=== PATIENT | female | born 1935 | race African-American/Black ===

== ENCOUNTER 2016-11-20 09:33 | Inpatient (IN) | payer MEDICARE, MEDICAID ==
[~2016-11-20] VITALS: Ht 165.1 cm; Wt 49.0 kg
[2016-11-20 10:09] LABS: BASOPHILS % 0.5 % (0.0-2.0); EOSINOPHILS % 1.4 % (0.0-5.0); HEMATOCRIT. 36.5 % (36.0-48.0); LYMPHOCYTES % 20.4 % (20.0-50.0); MEAN CORPUSCULAR HEMOGLOBIN 28.2 pg (28.0-32.0); MEAN CORPUSCULAR HGB CONC 32.7 g/dL (31.0-37.0); MEAN CORPUSCULAR VOLUME 86.1 fL (81.0-99.0); MEAN PLATELET VOLUME 7.1 fl (7.4-10.4); MONOCYTES % 5.3 % (2.0-8.0); NEUTROPHILS % 72.4 % (40.0-76.0); PLATELET 250 x1000/uL (130-400); RED BLOOD CELL COUNT 4.25 mill/uL (4.2-5.4); RED CELL DISTRIBUTION WIDTH 17.9 % (11.6-14.6)
[2016-11-20 10:14] LABS: PARTIAL THROMBOPLASTIN TIME 30.2 sec (24.0-34.0); PROTHROMBIN TIME 10.2 sec
[2016-11-20 10:20] LABS: ALANINE AMINOTRANSFERASE 11 IU/L (13-61); ALBUMIN 2.8 g/dL (3.4-5.0); ANION GAP 11; CALCIUM 8.5 mg/dL (8.5-10.1); CARBON DIOXIDE 29 mEq/L (21-32); CHLORIDE 105 mEq/L (98-107); HDL CHOLESTEROL 52 mg/dL (40-59); INDEX HEMOLYSI 1 (1-3); INDEX ICTERIC 1 (1-4); INDEX LIPEMIC 1 (1-3); LDL CHOLESTEROL 72 mg/dL (5-100); MAGNESIUM 2.1 mg/dL (1.8-2.4); TRIGLYCERIDE 92 mg/dL (0-150); UREA NITROGEN BLOOD 14 mg/dL (7-21); eGFR 58 mL/min (>60)
[2016-11-20 11:12] LABS: HEPATITIS B SURFACE ANTIGEN NEGATIVE
[2016-11-20 11:39] LABS: CLARITY URINE CLOUDY (CLEAR); COLOR URINE YELLOW (YELLOW); GLUCOSE URINE NEGATIVE (NEGATIVE); KETONES URINE NEGATIVE (NEGATIVE); LEUKOCYTE ESTERASE URINE NEGATIVE (NEGATIVE); NITRITE URINE NEGATIVE (NEGATIVE); OCCULT BLOOD URINE NEGATIVE (NEGATIVE); PH URINE 6.5 (4.5-8.0); PROTEIN URINE TRACE (NEGATIVE); SPECIFIC GRAVITY URINE 1.014 (1.005-1.030)
[2016-11-20 11:40] LABS: HEPATITIS C VIR.AB 0.18 INDEXVAL (0.00-0.80)
[2016-11-20 11:41] LABS: HEPATITIS B CORE AB IGM NEGATIVE
[2016-11-20 11:42] LABS: HEPATITIS A AB IGM NEGATIVE (NEGATIVE)
[2016-11-20 12:06] LABS: RBC URINE 0-2 /hpf (0-2); SQUAMOUS EPITHELIAL CELL URINE RARE /lpf (RARE/1+); WBC URINE 0-2 /hpf (0-2)
[2016-11-20 12:07] LABS: *AMPHETAMINES SCREEN URINE NEGATIVE (NEGATIVE); *BARBITURATES SCREEN URINE NEGATIVE (NEGATIVE); *BENZODIAZEPINES SCREEN URINE NEGATIVE (NEGATIVE); *COCAINE SCREEN URINE NEGATIVE (NEGATIVE); AMORPHOUS SEDIMENT URINE 2+ /lpf; BACTERIA URINE TRACE; CANNABINOID URINE SCREEN NEGATIVE (NEGATIVE); ECSTASY MDMA SCREEN URINE NEGATIVE (NEGATIVE); METHADONE URINE SCREEN NEGATIVE (NEGATIVE); MUCUS URINE TRACE /lpf (< = 2+); OPIATES URINE SCREEN NEGATIVE (NEGATIVE); PHENCYCLIDINE URINE SCREEN NEGATIVE (NEGATIVE)
[2016-11-20] MEDS ORDERED: LEVOFLOXACIN 500MG PREMIX 100 ML IV ONE (13:15)
[2016-11-20] MEDS ORDERED: METRONIDAZOLE 500 MG PREMIX 100 ML IV ONE (13:15)
[2016-11-20] MEDS ORDERED: METRONIDAZOLE 500 MG PREMIX 100 ML IV SCH (14:30)
[2016-11-20] MEDS ORDERED: IPRATROPIUM/ALBUTEROL 0.5-3(2.5)MG/3ML NEB INH PRN (14:30)
[2016-11-20] MEDS ORDERED: LEVOFLOXACIN 500MG PREMIX 100 ML IV SCH (14:45)
[2016-11-20] MEDS ORDERED: ONDANSETRON HCL 4MG/2ML VIAL IV PRN (15:45)
[2016-11-20 16:30] VITALS: BP 200/106
[2016-11-20] MEDS ORDERED: LEVOFLOXACIN 250MG PREMIX 50 ML IV SCH (16:44)
[2016-11-20] MEDS ORDERED: SORBITOL 70% SOLN 30ML PO NR (18:00)
[2016-11-20] MEDS: CLONIDINE 0.1MG TABLET PO PRN (18:40)
[2016-11-20 20:00] VITALS: BP_SYST 122; BP_SYST 209; BP_DIAS 101; BP_DIAS 87
[2016-11-20] MEDS ORDERED: SULFAMETHOXAZOLE/TRIMETHOPRIM 800/160MG TABLET PO SCH (21:00)
[2016-11-20] MEDS ORDERED: SORBITOL 70% SOLN 30ML PO PRN (22:00)
[2016-11-20] MEDS: HYDROCODONE/ACETAMINOPHEN 5/325MG TABLET PO PRN (22:36)
[2016-11-20] MEDS: METRONIDAZOLE 500 MG PREMIX 100 ML IV SCH (22:55)
[2016-11-20] MEDS ORDERED: DEXTROSE 50% WATER 50ML SYRINGE IV PRN (23:30)
[2016-11-21] VITALS: BP 110/66
[2016-11-21] MEDS: METRONIDAZOLE 500 MG PREMIX 100 ML IV SCH ×3 (04:56→23:57)
[2016-11-21] MEDS: INSULIN LISPRO 100 UNITS/ML SUBCUT SCH ×4 (06:45→21:00)
[2016-11-21] MEDS: BLOOD SUGAR DIAGNOSTIC STRIP TEST SCH ×4 (06:45→21:10)
[2016-11-21 08:00] VITALS: BP 130/79
[2016-11-21] MEDS ORDERED: LACTULOSE 20G/30ML UDC PO SCH (11:00)
[2016-11-21] MEDS ORDERED: NICOTINE 14 MG (11:30)
[2016-11-21] MEDS ORDERED: ROSU20TA PO (11:30)
[2016-11-21] MEDS ORDERED: mag (11:30)
[2016-11-21] MEDS ORDERED: POLY119P2 PO (11:30)
[2016-11-21] MEDS ORDERED: CLOP75TA33 PO (11:30)
[2016-11-21] MEDS ORDERED: FOLI-43 PO (11:30)
[2016-11-21] MEDS ORDERED: OMEP20CA10 PO (11:30)
[2016-11-21] MEDS ORDERED: ASPI-1035 PO (11:30)
[2016-11-21] MEDS ORDERED: METO50TA5 PO (11:30)
[2016-11-21] MEDS ORDERED: BUDE6HFA INH (11:30)
[2016-11-21] MEDS ORDERED: CYAN100053 IJ (11:30)
[2016-11-21] MEDS ORDERED: MONT10TA21 PO (11:30)
[2016-11-21] MEDS ORDERED: DOCU-150 PO (11:30)
[2016-11-21] MEDS ORDERED: OCD PO (11:30)
[2016-11-21] MEDS ORDERED: linaclotide (11:30)
[2016-11-21] MEDS ORDERED: PSYLLIUM (11:30)
[2016-11-21 11:53] VITALS: BP 148/74
[2016-11-21] MEDS: SENNOSIDES/DOCUSATE SOD 8.6/50MG TABLET PO SCH (12:06)
[2016-11-21] MEDS: HYDROCODONE/ACETAMINOPHEN 5/325MG TABLET PO PRN (12:07)
[2016-11-21] MEDS: LEVOFLOXACIN 250MG PREMIX 50 ML IV SCH (15:31)
[2016-11-21 15:43] LABS: HEMATOCRIT. 34.9 % (36.0-48.0); HEMOGLOBIN. 11.2 g/dL (12.0-16.0); MEAN CORPUSCULAR HEMOGLOBIN 27.9 pg (28.0-32.0); MEAN CORPUSCULAR HGB CONC 32.1 g/dL (31.0-37.0); MEAN CORPUSCULAR VOLUME 86.8 fL (81.0-99.0); MEAN PLATELET VOLUME 7.4 fl (7.4-10.4); PLATELET 230 x1000/uL (130-400); RED BLOOD CELL COUNT 4.02 mill/uL (4.2-5.4); WHITE BLOOD COUNT 15.8 x1000/uL (4.5-11.0)
[2016-11-21 15:47] LABS: DIFFERENTIAL COMMENT 1
[2016-11-21 15:58] LABS: ALANINE AMINOTRANSFERASE 7 IU/L (13-61); ALBUMIN 2.5 g/dL (3.4-5.0); AMYLASE 43 IU/L (25-115); ANION GAP 12; CALCIUM 8.6 mg/dL (8.5-10.1); CARBON DIOXIDE 27 mEq/L (21-32); CHLORIDE 106 mEq/L (98-107); INDEX HEMOLYSI 1 (1-3); INDEX ICTERIC 1 (1-4); INDEX LIPEMIC 1 (1-3); LIPASE 91 IU/L (73-393); UREA NITROGEN BLOOD 15 mg/dL (7-21); eGFR 58 mL/min (>60)
[2016-11-21 16:00] VITALS: BP 151/95
[2016-11-21 19:07] LABS: ATYPICAL LYMPHOCYTES 2; PLATELET ESTIMATE NORMAL
[2016-11-21 19:08] LABS: ANISOCYTOSIS 1+
[2016-11-21 20:00] VITALS: BP 164/95
[2016-11-21] MEDS: CLONIDINE 0.1MG TABLET PO PRN (20:49)
[2016-11-21] MEDS: MORPHINE SULFATE 2 MG/ML CPJ (NOT FOR IM USE) IV PRN (20:49)
[2016-11-21] MEDS: VANCOMYCIN 1 G PREMIX 200 ML IV SCH (20:49)
[2016-11-22] VITALS: BP 132/66
[2016-11-22] MEDS: MORPHINE SULFATE 2 MG/ML CPJ (NOT FOR IM USE) IV PRN (01:17)
[2016-11-22] MEDS: BLOOD SUGAR DIAGNOSTIC STRIP TEST SCH ×4 (07:12→20:23)
[2016-11-22] MEDS: METRONIDAZOLE 500 MG PREMIX 100 ML IV SCH ×3 (07:13→21:33)
[2016-11-22] MEDS: INSULIN LISPRO 100 UNITS/ML SUBCUT SCH ×4 (07:15→20:23)
[2016-11-22 08:00] VITALS: BP 162/87
[2016-11-22] MEDS: SENNOSIDES/DOCUSATE SOD 8.6/50MG TABLET PO SCH (08:55)
[2016-11-22 09:07] LABS: BASOPHILS % 0.2 % (0.0-2.0); EOSINOPHILS % 0.2 % (0.0-5.0); HEMATOCRIT. 33.9 % (36.0-48.0); HEMOGLOBIN. 10.9 g/dL (12.0-16.0); LYMPHOCYTES % 11.7 % (20.0-50.0); MEAN CORPUSCULAR HEMOGLOBIN 27.8 pg (28.0-32.0); MEAN CORPUSCULAR HGB CONC 32.1 g/dL (31.0-37.0); MEAN CORPUSCULAR VOLUME 86.6 fL (81.0-99.0); MEAN PLATELET VOLUME 7.5 fl (7.4-10.4); MONOCYTES % 6.8 % (2.0-8.0); NEUTROPHILS % 81.1 % (40.0-76.0); PLATELET 222 x1000/uL (130-400); RED BLOOD CELL COUNT 3.91 mill/uL (4.2-5.4); RED CELL DISTRIBUTION WIDTH 17.8 % (11.6-14.6); WHITE BLOOD COUNT 14.8 x1000/uL (4.5-11.0)
[2016-11-22 09:17] LABS: ALANINE AMINOTRANSFERASE 8 IU/L (13-61); ALBUMIN 2.4 g/dL (3.4-5.0); ANION GAP 12; CALCIUM 8.6 mg/dL (8.5-10.1); CARBON DIOXIDE 26 mEq/L (21-32); CHLORIDE 107 mEq/L (98-107); INDEX HEMOLYSI 1 (1-3); INDEX ICTERIC 1 (1-4); INDEX LIPEMIC 1 (1-3); UREA NITROGEN BLOOD 14 mg/dL (7-21); eGFR 58 mL/min (>60)
[2016-11-22 12:00] VITALS: BP 156/82
[2016-11-22] MEDS: HYDROCODONE/ACETAMINOPHEN 5/325MG TABLET PO PRN (12:11)
[2016-11-22] MEDS: LEVOFLOXACIN 250MG PREMIX 50 ML IV SCH (14:20)
[2016-11-22 16:00] VITALS: BP 150/90
[2016-11-22 20:00] VITALS: BP 167/96
[2016-11-22] MEDS: CLONIDINE 0.1MG TABLET PO PRN (20:23)
[2016-11-22] MEDS: VANCOMYCIN 1 G PREMIX 200 ML IV SCH (20:23)
[2016-11-23] VITALS: BP 117/77
[2016-11-23 04:00] VITALS: BP 137/80
[2016-11-23] MEDS: METRONIDAZOLE 500 MG PREMIX 100 ML IV SCH ×2 (05:41→13:56)
[2016-11-23] MEDS: BLOOD SUGAR DIAGNOSTIC STRIP TEST SCH ×2 (05:55→11:48)
[2016-11-23 06:08] LABS: CALCIUM 8.7 mg/dL (8.5-10.1)
[2016-11-23] MEDS: INSULIN LISPRO 100 UNITS/ML SUBCUT SCH ×3 (06:18→11:48)
[2016-11-23 08:00] VITALS: BP 128/83
[2016-11-23] MEDS ORDERED: NA PHOS,M-B/NA PHOS,DI-BA ENEMA 118ML PR NR (09:00)
[2016-11-23] MEDS: SENNOSIDES/DOCUSATE SOD 8.6/50MG TABLET PO SCH (09:50)
[2016-11-23] MEDS: LEVOFLOXACIN 250MG PREMIX 50 ML IV SCH (14:57)
[2016-11-23 15:06] VITALS: BP 146/82
[2016-11-23] MEDS ORDERED: METRONIDAZOLE 500MG TABLET PO SCH (22:00)
[2016-11-24] MEDS ORDERED: LEVOFLOXACIN 250MG TABLET PO SCH (11:00)
== END 2016-11-23 15:50 | disposition home or self-care (01) | DRG 391 ==
LOC: ER 09:41 → 6EST 13:08 → 5WST 18:50
PROVIDERS: ADMIT Internal Medicine Critical Care Medicine; ATTEND Internal Medicine Critical Care Medicine
DX: K57.32 Diverticulitis of large intestine without perforation or abscess without bleeding (principal); E43 Unspecified severe protein-calorie malnutrition; R65.10 Systemic inflammatory response syndrome (SIRS) of non-infectious origin without acute organ dysfunction; Z68.1 Body mass index [BMI] 19.9 or less, adult; I10 Essential (primary) hypertension; I71.4 Abdominal aortic aneurysm, without rupture; J44.9 Chronic obstructive pulmonary disease, unspecified; E11.65 Type 2 diabetes mellitus with hyperglycemia; F17.210 Nicotine dependence, cigarettes, uncomplicated; K59.00 Constipation, unspecified; I25.10 Atherosclerotic heart disease of native coronary artery without angina pectoris; E11.51 Type 2 diabetes mellitus with diabetic peripheral angiopathy without gangrene; E11.21 Type 2 diabetes mellitus with diabetic nephropathy; Z95.5 Presence of coronary angioplasty implant and graft; I25.2 Old myocardial infarction; Z89.511 Acquired absence of right leg below knee
CPT/HCPCS: 36415; 71010; 74176; 80048; 80053; 80061; 80305; 81001; 82150; 82962; 83036; 83605; 83690; 83735; 85025; 85610; 85651; 85730; 86705; 86709; 86803; 87040; 87340; 93005; 93970; 96365; 96366; 96368; 99285; J1815; J1956; J2270; J2405; J3370; J3490; J7030; J7040; J7050

== ENCOUNTER 2017-07-29 11:48 | Emergency (ER) | payer MEDICARE, MEDICAID ==
[~2017-07-29] VITALS: Ht 160 cm; Wt 65.0 kg
[~2017-07-29 11:48] MED LIST: ASPI-1159 PO; BUDE6HFA INH; CLOP75TA33 PO; CYAN100053 IJ; DOCU-150 PO; FOLI-43 PO; METO-539 PO; MONT10TA21 PO; OCD PO; OMEP20CA10 PO; POLY119P2 PO; ROSU20TA PO
[2017-07-29 17:30] VITALS: BP 208/111
[2017-07-29] MEDS ORDERED: CLONIDINE 0.1MG TABLET PO ONE (18:45)
== END 2017-07-29 19:10 | disposition home or self-care (01) ==
LOC: ER 11:58
DX: R60.0 Localized edema (principal); K59.00 Constipation, unspecified; J44.9 Chronic obstructive pulmonary disease, unspecified; E11.9 Type 2 diabetes mellitus without complications; I10 Essential (primary) hypertension; F17.290 Nicotine dependence, other tobacco product, uncomplicated; Z89.511 Acquired absence of right leg below knee; Z79.82 Long term (current) use of aspirin; Z79.01 Long term (current) use of anticoagulants
CPT/HCPCS: 93971; 99284; 99406

== ENCOUNTER 2018-07-19 10:50 | Emergency (ER) | payer MEDICARE, MEDICAID ==
[~2018-07-19] VITALS: Ht 165.1 cm; Wt 78.0 kg
[~2018-07-19 10:50] MED LIST changes: +ATOR20TA65 PO; +GABA-533 PO; +HYDROCODONE; +SULF20OR7 PO
[2018-07-19] MEDS ORDERED: KETOROLAC 30MG/ML VIAL IM ONE (12:00)
[2018-07-19 12:25] VITALS: BP 117/57
[2018-07-19] MEDS ORDERED: BACITRACIN 15GM TUBE TOP ONE (13:30)
== END 2018-07-19 14:19 | disposition home or self-care (01) ==
LOC: ER 10:50
DX: M25.552 Pain in left hip (principal); I50.9 Heart failure, unspecified; J44.9 Chronic obstructive pulmonary disease, unspecified; E78.00 Pure hypercholesterolemia, unspecified; T21.25XA Burn of second degree of buttock, initial encounter; T31.0 Burns involving less than 10% of body surface; X11.8XXA Contact with other hot tap-water, initial encounter; Y93.89 Activity, other specified; Y92.89 Other specified places as the place of occurrence of the external cause; Y99.8 Other external cause status; Z79.82 Long term (current) use of aspirin; Z88.5 Allergy status to narcotic agent; Z79.899 Other long term (current) drug therapy
CPT/HCPCS: 16020; 73502; 96372; 99284; J1885

== ENCOUNTER 2018-10-24 10:50 | Inpatient (IN) | payer MEDICARE, MEDICAID ==
[~2018-10-24] VITALS: Ht 162.6 cm; Wt 65.5 kg
[2018-10-24] MEDS ORDERED: FUROSEMIDE 40MG/4ML VIAL IV ONE (11:30)
[2018-10-24 11:40] LABS: HEMATOCRIT. 43.7 % (36.0-48.0); MEAN CORPUSCULAR HEMOGLOBIN 29.9 pg (28.0-32.0); MEAN CORPUSCULAR VOLUME 93.3 fL (81.0-99.0); MEAN PLATELET VOLUME 8.5 fl (7.4-10.4); PLATELET 231 x1000/uL (130-400); RED BLOOD CELL COUNT 4.69 mill/uL (4.2-5.4); RED CELL DISTRIBUTION WIDTH 20.7 % (11.6-14.6)
[2018-10-24 11:47] LABS: CHLORIDE 101 mEq/L (98-107)
[2018-10-24] MEDS ORDERED: CEFTRIAXONE 1 G PREMIX 50 ML IV ONE (12:30)
[2018-10-24] MEDS ORDERED: VANCOMYCIN 1 G PREMIX 200 ML IV ONE (12:30)
[2018-10-24 12:53] LABS: PLATELET ESTIMATE NORMAL
[2018-10-24] MEDS ORDERED: ONDANSETRON HCL 4MG/2ML INJ IV STA (13:44)
[2018-10-24] MEDS ORDERED: MORPHINE SULFATE 4 MG/ML CPJ (NOT FOR IM USE) IV STA (13:44)
[2018-10-24 21:41] VITALS: BP 147/63
[2018-10-24 21:50] VITALS: BP 147/63
[2018-10-24] MEDS: HYDROMORPHONE HCL/PF 2MG/ML CPJ IV PRN (23:07)
[2018-10-25] MEDS ORDERED: ACETAMINOPHEN 325MG TABLET PO PRN
[2018-10-25] MEDS ORDERED: ONDANSETRON HCL 4MG/2ML INJ IV PRN
[2018-10-25] MEDS ORDERED: DOCUSATE SODIUM 100MG CAPSULE PO PRN
[2018-10-25] MEDS ORDERED: PIPERACILLIN/TAZ 3.375G PREMIX 50 ML IV SCH
[2018-10-25 00:05] VITALS: BP 144/69
[2018-10-25] MEDS: ATORVASTATIN CALCIUM 20MG TABLET PO SCH ×2 (00:41→21:20)
[2018-10-25] MEDS: SODIUM CHLORIDE 0.9% 1,000 ML IV SCH ×2 (00:42→13:20)
[2018-10-25] MEDS: IPRATROPIUM/ALBUTEROL 0.5-3(2.5)MG/3ML NEB HHN SCH ×5 (00:43→20:40)
[2018-10-25] MEDS: PIPERACILLIN/TAZ 2.25G PREMIX 50 ML IV SCH ×3 (02:07→18:06)
[2018-10-25 04:00] VITALS: BP 127/58
[2018-10-25] MEDS: GABAPENTIN 400MG CAPSULE PO SCH ×3 (06:19→21:36)
[2018-10-25 06:22] LABS: HEMATOCRIT. 36.2 % (36.0-48.0); HEMOGLOBIN. 11.7 g/dL (12.0-16.0); MEAN CORPUSCULAR HEMOGLOBIN 30.1 pg (28.0-32.0); MEAN CORPUSCULAR VOLUME 93.3 fL (81.0-99.0); MEAN PLATELET VOLUME 8.5 fl (7.4-10.4); PLATELET 238 x1000/uL (130-400); RED BLOOD CELL COUNT 3.88 mill/uL (4.2-5.4); RED CELL DISTRIBUTION WIDTH 20.1 % (11.6-14.6)
[2018-10-25] MEDS: INSULIN LISPRO 100 UNITS/ML SUBCUT SCH ×4 (07:19→21:00)
[2018-10-25] MEDS: BLOOD SUGAR DIAGNOSTIC STRIP TEST SCH ×4 (07:19→21:30)
[2018-10-25] MEDS: OMEPRAZOLE 20MG CAPSULE EXTENDED RELEASE PO SCH (07:56)
[2018-10-25 08:00] VITALS: BP 92/68
[2018-10-25] MEDS ORDERED: ENOXAPARIN 40MG/0.4ML SYR SUBCUT SCH (09:00)
[2018-10-25] MEDS: METOPROLOL TARTRATE 50MG TABLET PO SCH ×2 (09:00→21:29)
[2018-10-25] MEDS: ASPIRIN 81MG TABLET PO SCH (09:41)
[2018-10-25] MEDS: CLOPIDOGREL 75MG TABLET PO SCH (09:41)
[2018-10-25] MEDS: ENOXAPARIN 30MG/0.3ML SYR SUBCUT SCH (09:42)
[2018-10-25 10:21] LABS: PLATELET ESTIMATE NORMAL
[2018-10-25 12:00] VITALS: BP 161/66
[2018-10-25] MEDS: HYDROMORPHONE HCL/PF 2MG/ML CPJ IV PRN (14:13)
[2018-10-25] MEDS: VANCOMYCIN 750 MG PREMIX 150 ML IV SCH (14:13)
[2018-10-25 15:24] LABS: CHLORIDE 103 mEq/L (98-107)
[2018-10-25 16:00] VITALS: BP 152/59
[2018-10-25 20:00] VITALS: BP 165/85
[2018-10-25] MEDS: DEXTROSE 50% WATER 50ML SYRINGE IV PRN (21:15)
[2018-10-26] VITALS: BP 124/56
[2018-10-26] MEDS: IPRATROPIUM/ALBUTEROL 0.5-3(2.5)MG/3ML NEB HHN SCH ×6 (00:37→21:18)
[2018-10-26] MEDS: PIPERACILLIN/TAZ 2.25G PREMIX 50 ML IV SCH ×3 (00:44→19:43)
[2018-10-26] MEDS: SODIUM CHLORIDE 0.9% 1,000 ML IV SCH ×2 (02:40→08:47)
[2018-10-26 04:00] VITALS: BP 127/60
[2018-10-26] MEDS: GABAPENTIN 400MG CAPSULE PO SCH ×3 (05:38→20:53)
[2018-10-26] MEDS: BLOOD SUGAR DIAGNOSTIC STRIP TEST SCH ×4 (07:55→20:45)
[2018-10-26 08:00] VITALS: BP 166/77
[2018-10-26] MEDS: INSULIN LISPRO 100 UNITS/ML SUBCUT SCH ×4 (08:10→20:45)
[2018-10-26] MEDS: METOPROLOL TARTRATE 50MG TABLET PO SCH ×2 (08:45→20:53)
[2018-10-26] MEDS: ENOXAPARIN 30MG/0.3ML SYR SUBCUT SCH (08:47)
[2018-10-26] MEDS: OMEPRAZOLE 20MG CAPSULE EXTENDED RELEASE PO SCH (08:47)
[2018-10-26] MEDS: CLOPIDOGREL 75MG TABLET PO SCH (08:47)
[2018-10-26] MEDS: ASPIRIN 81MG TABLET PO SCH (08:47)
[2018-10-26 12:00] VITALS: BP 93/66
[2018-10-26] MEDS: VANCOMYCIN 750 MG PREMIX 150 ML IV SCH (14:20)
[2018-10-26] MEDS: HYDROMORPHONE HCL/PF 2MG/ML CPJ IV PRN ×2 (14:30→20:57)
[2018-10-26 16:00] VITALS: BP 147/60
[2018-10-26 20:00] VITALS: BP 176/88
[2018-10-26] MEDS: ATORVASTATIN CALCIUM 20MG TABLET PO SCH (20:52)
[2018-10-27] VITALS: BP 102/60
[2018-10-27] MEDS: PIPERACILLIN/TAZ 2.25G PREMIX 50 ML IV SCH ×3 (01:04→17:56)
[2018-10-27] MEDS: IPRATROPIUM/ALBUTEROL 0.5-3(2.5)MG/3ML NEB HHN SCH ×6 (01:57→20:55)
[2018-10-27 04:00] VITALS: BP 130/64
[2018-10-27] MEDS: GABAPENTIN 400MG CAPSULE PO SCH ×3 (06:01→20:26)
[2018-10-27] MEDS: SODIUM CHLORIDE 0.9% 1,000 ML IV SCH (06:01)
[2018-10-27] MEDS: DEXTROSE 50% WATER 50ML SYRINGE IV PRN (06:16)
[2018-10-27] MEDS: BLOOD SUGAR DIAGNOSTIC STRIP TEST SCH ×4 (06:26→20:26)
[2018-10-27] MEDS: INSULIN LISPRO 100 UNITS/ML SUBCUT SCH ×4 (06:27→20:26)
[2018-10-27 08:00] VITALS: BP 167/87
[2018-10-27] MEDS: FAMOTIDINE 20MG TABLET PO SCH (10:13)
[2018-10-27] MEDS: HYDROMORPHONE HCL/PF 2MG/ML CPJ IV PRN (10:13)
[2018-10-27] MEDS: CLOPIDOGREL 75MG TABLET PO SCH (10:13)
[2018-10-27] MEDS: ENOXAPARIN 30MG/0.3ML SYR SUBCUT SCH (10:14)
[2018-10-27] MEDS: ASPIRIN 81MG TABLET PO SCH (10:14)
[2018-10-27] MEDS: METOPROLOL TARTRATE 50MG TABLET PO SCH ×2 (10:14→20:26)
[2018-10-27 12:00] VITALS: BP 136/70
[2018-10-27 12:43] LABS: HEMATOCRIT. 34.1 % (36.0-48.0); MEAN CORPUSCULAR VOLUME 93.5 fL (81.0-99.0); MEAN PLATELET VOLUME 8.3 fl (7.4-10.4); PLATELET 264 x1000/uL (130-400); RED BLOOD CELL COUNT 3.65 mill/uL (4.2-5.4); RED CELL DISTRIBUTION WIDTH 19.9 % (11.6-14.6)
[2018-10-27 12:54] LABS: CHLORIDE 107 mEq/L (98-107)
[2018-10-27] MEDS: VANCOMYCIN 750 MG PREMIX 150 ML IV SCH (14:58)
[2018-10-27 16:00] VITALS: BP 139/73
[2018-10-27 17:22] LABS: PLATELET ESTIMATE NORMAL
[2018-10-27 20:00] VITALS: BP 161/76
[2018-10-27] MEDS: ATORVASTATIN CALCIUM 20MG TABLET PO SCH (20:26)
[2018-10-28] VITALS: BP 160/81
[2018-10-28] MEDS: IPRATROPIUM/ALBUTEROL 0.5-3(2.5)MG/3ML NEB HHN SCH ×6 (00:15→20:30)
[2018-10-28] MEDS: PIPERACILLIN/TAZ 2.25G PREMIX 50 ML IV SCH ×2 (01:27→09:09)
[2018-10-28] MEDS: GABAPENTIN 400MG CAPSULE PO SCH ×3 (05:50→21:58)
[2018-10-28] MEDS: HYDROMORPHONE HCL/PF 2MG/ML CPJ IV PRN (05:54)
[2018-10-28] MEDS: CLONIDINE 0.1MG TABLET PO PRN (05:56)
[2018-10-28 06:00] VITALS: BP 168/81
[2018-10-28] MEDS: BLOOD SUGAR DIAGNOSTIC STRIP TEST SCH ×3 (06:40→21:57)
[2018-10-28 07:21] LABS: BASOPHILS % 0.5 % (0.0-2.0); EOSINOPHILS % 0.5 % (0.0-5.0); HEMATOCRIT. 34.8 % (36.0-48.0); HEMOGLOBIN. 11.4 g/dL (12.0-16.0); LYMPHOCYTES % 8.5 % (20.0-50.0); MEAN CORPUSCULAR HEMOGLOBIN 30.7 pg (28.0-32.0); MEAN CORPUSCULAR VOLUME 93.1 fL (81.0-99.0); MEAN PLATELET VOLUME 8.3 fl (7.4-10.4); MONOCYTES % 5.9 % (2.0-8.0); NEUTROPHILS % 84.6 % (40.0-76.0); PLATELET 284 x1000/uL (130-400); RED BLOOD CELL COUNT 3.74 mill/uL (4.2-5.4); RED CELL DISTRIBUTION WIDTH 19.9 % (11.6-14.6)
[2018-10-28 08:00] VITALS: BP 164/75
[2018-10-28] MEDS: INSULIN LISPRO 100 UNITS/ML SUBCUT SCH ×3 (08:10→21:00)
[2018-10-28] MEDS: VANCOMYCIN 750 MG PREMIX 150 ML IV SCH (08:27)
[2018-10-28] MEDS: FAMOTIDINE 20MG TABLET PO SCH (09:08)
[2018-10-28] MEDS: ASPIRIN 81MG TABLET PO SCH (09:08)
[2018-10-28] MEDS: METOPROLOL TARTRATE 50MG TABLET PO SCH ×2 (09:09→21:58)
[2018-10-28] MEDS: CLOPIDOGREL 75MG TABLET PO SCH (09:09)
[2018-10-28] MEDS: ENOXAPARIN 40MG/0.4ML SYR SUBCUT SCH (09:10)
[2018-10-28 13:01] VITALS: BP 133/63
[2018-10-28 17:02] VITALS: BP 137/70
[2018-10-28 20:00] VITALS: BP 181/83
[2018-10-28] MEDS: ATORVASTATIN CALCIUM 20MG TABLET PO SCH (21:58)
[2018-10-29] VITALS: BP 152/70
[2018-10-29] MEDS: IPRATROPIUM/ALBUTEROL 0.5-3(2.5)MG/3ML NEB HHN SCH ×6 (00:58→15:38)
[2018-10-29] MEDS: VANCOMYCIN 750 MG PREMIX 150 ML IV SCH (02:39)
[2018-10-29 04:00] VITALS: BP 174/84
[2018-10-29] MEDS: GABAPENTIN 400MG CAPSULE PO SCH ×2 (05:37→16:14)
[2018-10-29] MEDS: HYDROMORPHONE HCL/PF 2MG/ML CPJ IV PRN (05:37)
[2018-10-29] MEDS: CLONIDINE 0.1MG TABLET PO PRN (05:37)
[2018-10-29] MEDS: BLOOD SUGAR DIAGNOSTIC STRIP TEST SCH ×2 (06:23→08:00)
[2018-10-29] MEDS: INSULIN LISPRO 100 UNITS/ML SUBCUT SCH ×2 (07:20→13:10)
[2018-10-29] MEDS: ASPIRIN 81MG TABLET PO SCH (07:57)
[2018-10-29] MEDS: CLOPIDOGREL 75MG TABLET PO SCH (07:58)
[2018-10-29] MEDS: FAMOTIDINE 20MG TABLET PO SCH (07:58)
[2018-10-29] MEDS: ENOXAPARIN 40MG/0.4ML SYR SUBCUT SCH (07:59)
[2018-10-29] MEDS: METOPROLOL TARTRATE 50MG TABLET PO SCH (07:59)
[2018-10-29 08:00] VITALS: BP 150/64
[2018-10-29 09:06] LABS: ANTI-PROTEINASE 3 ABS < 3.5 U/mL (0.0-3.5)
[2018-10-29 10:09] LABS: ANTI-MYELOPEROXIDASE AB < 9.0 U/mL (0.0-9.0)
[2018-10-29] MEDS ORDERED: IOHEXOL-350 100 ML BOTTLE ONE (10:40)
[2018-10-29 12:00] VITALS: BP 138/79
[2018-10-29 13:06] LABS: ATYPICAL P-ANCA <1:20 titer (Neg:<1:20); CYTOPLASMIC C-ANCA <1:20 titer (Neg:<1:20); PERINUCLEAR P-ANCA <1:20 titer (Neg:<1:20)
[2018-10-29 16:18] VITALS: BP 130/79
== END 2018-10-29 18:09 | disposition home health service (06) | DRG 871 ==
LOC: ER 10:50 → 7WST 14:48 → EDBEDREQ 14:53 → ENRESERV 20:07
PROVIDERS: ADMIT Internal Medicine; ATTEND Internal Medicine
DX: A41.9 Sepsis, unspecified organism (principal); E43 Unspecified severe protein-calorie malnutrition; L03.116 Cellulitis of left lower limb; I13.0 Hypertensive heart and chronic kidney disease with heart failure and stage 1 through stage 4 chronic kidney disease, or unspecified chronic kidney disease; J44.9 Chronic obstructive pulmonary disease, unspecified; I50.9 Heart failure, unspecified; N18.9 Chronic kidney disease, unspecified; E11.51 Type 2 diabetes mellitus with diabetic peripheral angiopathy without gangrene; E11.22 Type 2 diabetes mellitus with diabetic chronic kidney disease; E78.5 Hyperlipidemia, unspecified; F17.200 Nicotine dependence, unspecified, uncomplicated; Z89.511 Acquired absence of right leg below knee; Z91.14 Patient's other noncompliance with medication regimen; Z91.19 Patient's noncompliance with other medical treatment and regimen; Z88.6 Allergy status to analgesic agent; Z79.82 Long term (current) use of aspirin; Z79.899 Other long term (current) drug therapy
CPT/HCPCS: 36415; 71045; 75635; 80048; 80202; 82962; 83520; 83880; 84145; 84484; 86140; 86256; 93005; 93923; 93971; 94640; 96365; 96366; 96375; 99285; A6261; J0696; J1170; J1650; J1940; J2270; J2405; J2543; J3370; J7030; J7620; Q9967

== ENCOUNTER 2018-11-08 17:53 | Inpatient (IN) | payer MEDICARE, MEDICAID ==
[~2018-11-08] VITALS: Ht 162.6 cm; Wt 67.8 kg
[~2018-11-08 17:53] MED LIST changes: -HYDROCODONE
[2018-11-08] MEDS ORDERED: KETOROLAC 30MG/ML VIAL IV STA (18:46)
[2018-11-08] MEDS ORDERED: PIPERACILLIN/TAZOBACTAM 3.375GM/50ML PREMIX IV ONE (19:00)
[2018-11-08] MEDS ORDERED: BACITRACIN ZINC OINT UDPKT TOP ONE (19:00)
[2018-11-08] MEDS ORDERED: LIDOCAINE HCL/PF 1% 10 MG/ML 5ML VIAL IJ ONE (19:00)
[2018-11-08] MEDS ORDERED: VANCOMYCIN 1 G PREMIX 200 ML IV SCH (19:00)
[2018-11-08] MEDS ORDERED: TETANUS, DIPHTHERIA, PERTUSSIS VAC/PF 0.5ML (>7YR OLD) IM ONE (19:00)
[2018-11-08] MEDS ORDERED: PIPERACILLIN/TAZ 3.375G PREMIX 50 ML IV SCH (19:15)
[2018-11-08 19:36] LABS: CHLORIDE 101 mEq/L (98-107)
[2018-11-08 19:37] LABS: BASOPHILS % 0.6 % (0.0-2.0); EOSINOPHILS % 1.2 % (0.0-5.0); HEMATOCRIT. 43.5 % (36.0-48.0); HEMOGLOBIN. 14.4 g/dL (12.0-16.0); LYMPHOCYTES % 20.2 % (20.0-50.0); MEAN CORPUSCULAR HEMOGLOBIN 31.2 pg (28.0-32.0); MEAN CORPUSCULAR VOLUME 94.3 fL (81.0-99.0); MEAN PLATELET VOLUME 7.9 fl (7.4-10.4); MONOCYTES % 5.2 % (2.0-8.0); NEUTROPHILS % 72.8 % (40.0-76.0); PLATELET 313 x1000/uL (130-400); RED BLOOD CELL COUNT 4.61 mill/uL (4.2-5.4); RED CELL DISTRIBUTION WIDTH 19.1 % (11.6-14.6)
[2018-11-08 19:42] LABS: PLATELET ESTIMATE NORMAL
[2018-11-08 22:41] LABS: CLARITY URINE CLEAR (CLEAR); COLOR URINE YELLOW (YELLOW); KETONES URINE NEGATIVE (NEGATIVE); LEUKOCYTE ESTERASE URINE NEGATIVE (NEGATIVE); NITRITE URINE NEGATIVE (NEGATIVE); OCCULT BLOOD URINE NEGATIVE (NEGATIVE); PH URINE 6.5 (4.5-8.0); PROTEIN URINE NEGATIVE (NEGATIVE); SPECIFIC GRAVITY URINE 1.014 (1.005-1.030); UROBILINOGEN URINE 0.2 E.U./dL (0.2-1.0)
[2018-11-09 08:00] VITALS: BP 152/77
[2018-11-09] MEDS ORDERED: DEXTROSE 50% WATER 50ML SYRINGE IV PRN (08:45)
[2018-11-09] MEDS ORDERED: HYDROCODONE/ACETAMINOPHEN 5/325MG TABLET PO PRN (08:45)
[2018-11-09] MEDS: BLOOD SUGAR DIAGNOSTIC STRIP TEST SCH ×4 (08:50→21:00)
[2018-11-09] MEDS: INSULIN LISPRO 100 UNITS/ML SUBCUT SCH ×4 (08:51→21:00)
[2018-11-09] MEDS: ENOXAPARIN 40MG/0.4ML SYR SUBCUT SCH (10:31)
[2018-11-09 11:09] LABS: BASOPHILS % 0.9 % (0.0-2.0); EOSINOPHILS % 1.4 % (0.0-5.0); HEMATOCRIT. 31.2 % (36.0-48.0); HEMOGLOBIN. 10.2 g/dL (12.0-16.0); LYMPHOCYTES % 18.9 % (20.0-50.0); MEAN CORPUSCULAR HEMOGLOBIN 30.3 pg (28.0-32.0); MEAN CORPUSCULAR VOLUME 92.5 fL (81.0-99.0); MONOCYTES % 7.8 % (2.0-8.0); PLATELET 252 x1000/uL (130-400); RED BLOOD CELL COUNT 3.38 mill/uL (4.2-5.4); RED CELL DISTRIBUTION WIDTH 19.1 % (11.6-14.6)
[2018-11-09 12:00] VITALS: BP 109/67
[2018-11-09] MEDS: MORPHINE SULFATE 4 MG/ML CPJ (NOT FOR IM USE) IV PRN ×2 (12:32→18:08)
[2018-11-09 16:00] VITALS: BP 131/62
[2018-11-09] MEDS: VANCOMYCIN 750 MG PREMIX 150 ML IV SCH (18:09)
[2018-11-09 20:00] VITALS: BP 151/79
[2018-11-09] MEDS ORDERED: MEDICATION NOT ON FORMULARY EA (Budesonide/Formoterol Fumarate (Symbicort 160/4.5 Mcg In INH PRN (21:00)
[2018-11-09] MEDS ORDERED: BUDESONIDE 0.5MG/2ML NEB HHN PRN (21:30)
[2018-11-09] MEDS ORDERED: ALBUTEROL (0.083%) 2.5MG/3ML NEB HHN PRN (21:30)
[2018-11-09] MEDS: LACTULOSE 20G/30ML UDC PO SCH (22:46)
[2018-11-10] VITALS: BP 140/84
[2018-11-10 04:00] VITALS: BP 122/80
[2018-11-10] MEDS: BLOOD SUGAR DIAGNOSTIC STRIP TEST SCH ×4 (07:29→21:00)
[2018-11-10] MEDS: INSULIN LISPRO 100 UNITS/ML SUBCUT SCH ×4 (07:29→21:00)
[2018-11-10 07:54] LABS: BASOPHILS % 0.8 % (0.0-2.0); EOSINOPHILS % 1.5 % (0.0-5.0); HEMATOCRIT. 34.4 % (36.0-48.0); HEMOGLOBIN. 11.3 g/dL (12.0-16.0); LYMPHOCYTES % 22.7 % (20.0-50.0); MEAN CORPUSCULAR HEMOGLOBIN 30.6 pg (28.0-32.0); MEAN CORPUSCULAR VOLUME 92.9 fL (81.0-99.0); MEAN PLATELET VOLUME 7.7 fl (7.4-10.4); MONOCYTES % 10.6 % (2.0-8.0); NEUTROPHILS % 64.4 % (40.0-76.0); PLATELET 232 x1000/uL (130-400); RED BLOOD CELL COUNT 3.71 mill/uL (4.2-5.4); RED CELL DISTRIBUTION WIDTH 19.1 % (11.6-14.6)
[2018-11-10 08:00] VITALS: BP 113/73
[2018-11-10 08:03] LABS: CHLORIDE 104 mEq/L (98-107)
[2018-11-10] MEDS ORDERED: ATORVASTATIN CALCIUM 20MG TABLET PO SCH ×2 (09:00→21:00)
[2018-11-10] MEDS: LACTULOSE 20G/30ML UDC PO SCH ×2 (09:56→16:24)
[2018-11-10] MEDS: CLOPIDOGREL 75MG TABLET PO SCH (09:56)
[2018-11-10] MEDS: ASPIRIN 81MG TABLET PO SCH (09:56)
[2018-11-10] MEDS: ENOXAPARIN 40MG/0.4ML SYR SUBCUT SCH (09:56)
[2018-11-10] MEDS: MORPHINE SULFATE 4 MG/ML CPJ (NOT FOR IM USE) IV PRN ×2 (10:07→16:24)
[2018-11-10 12:00] VITALS: BP 133/78
[2018-11-10] MEDS: VANCOMYCIN 750 MG PREMIX 150 ML IV SCH (12:56)
[2018-11-10 16:00] VITALS: BP 160/79
[2018-11-10] MEDS ORDERED: CLONIDINE 0.1MG TABLET PO PRN (17:40)
[2018-11-10 20:00] VITALS: BP 128/57
[2018-11-11] VITALS: BP 140/69
[2018-11-11 04:00] VITALS: BP 145/80
[2018-11-11] MEDS: INSULIN LISPRO 100 UNITS/ML SUBCUT SCH (06:21)
[2018-11-11] MEDS: VANCOMYCIN 750 MG PREMIX 150 ML IV SCH (06:21)
[2018-11-11] MEDS: BLOOD SUGAR DIAGNOSTIC STRIP TEST SCH (06:21)
[2018-11-11 08:00] VITALS: BP 142/94
[2018-11-11] MEDS: ASPIRIN 81MG TABLET PO SCH (08:41)
[2018-11-11] MEDS: ENOXAPARIN 40MG/0.4ML SYR SUBCUT SCH (08:41)
[2018-11-11] MEDS: CLOPIDOGREL 75MG TABLET PO SCH (08:41)
[2018-11-11] MEDS: LACTULOSE 20G/30ML UDC PO SCH (08:41)
[2018-11-11 12:00] VITALS: BP 168/99
[2018-11-11] MEDS ORDERED: CEFEPIME 1,000 MG in DEXTROSE 5% WATER 50 ML IV SCH ×2 (12:30→14:00)
[2018-11-11 15:11] VITALS: BP 150/90
== END 2018-11-11 16:08 | disposition home health service (06) | DRG 603 ==
LOC: ER 17:53 → EDBEDREQ 18:58 → 8WST 20:59 → EDBEDREQ 21:02 → EDBEDREQTM 21:02 → ENRESERV 11-09 05:05
PROVIDERS: ADMIT Internal Medicine; ATTEND Internal Medicine
DX: L03.116 Cellulitis of left lower limb (principal); I13.0 Hypertensive heart and chronic kidney disease with heart failure and stage 1 through stage 4 chronic kidney disease, or unspecified chronic kidney disease; N18.9 Chronic kidney disease, unspecified; J44.9 Chronic obstructive pulmonary disease, unspecified; I50.9 Heart failure, unspecified; S81.812A Laceration without foreign body, left lower leg, initial encounter; M19.90 Unspecified osteoarthritis, unspecified site; E11.22 Type 2 diabetes mellitus with diabetic chronic kidney disease; E11.51 Type 2 diabetes mellitus with diabetic peripheral angiopathy without gangrene; F17.210 Nicotine dependence, cigarettes, uncomplicated; I25.10 Atherosclerotic heart disease of native coronary artery without angina pectoris; E78.5 Hyperlipidemia, unspecified; Z89.611 Acquired absence of right leg above knee; Z86.73 Personal history of transient ischemic attack (TIA), and cerebral infarction without residual deficits; Z88.5 Allergy status to narcotic agent; Z89.511 Acquired absence of right leg below knee
CPT/HCPCS: 36415; 71045; 73590; 73630; 80048; 80202; 82962; 83605; 83880; 84145; 87070; 87077; 87186; 90471; 90715; 93971; 96365; 96366; 96367; 96375; 97116; 97162; 97530; 99285; J0692; J1650; J1885; J2270; J2543; J3370; J3490; J7050; J7060; A4315

== ENCOUNTER 2019-04-01 18:35 | Inpatient (IN) | payer MEDICARE, MEDICAID ==
[~2019-04-01] VITALS: Ht 165.1 cm; Wt 62.6 kg
[~2019-04-01 18:35] MED LIST changes: -ASPI-1159 PO; +ASPI-1393 PO; -CYAN100053 IJ; -DOCU-150 PO; -FOLI-43 PO; -GABA-533 PO; -MONT10TA21 PO; -OCD PO; -OMEP20CA10 PO; -POLY119P2 PO; -ROSU20TA PO; -SULF20OR7 PO
[2019-04-01] MEDS ORDERED: IPRATROPIUM BROMIDE (0.02%) 0.5MG/2.5ML NEB HHN STA (19:05)
[2019-04-01] MEDS ORDERED: METHYLPREDNISOLONE SOD SUCC 125 MG/2 ML VIAL IV STA (19:05)
[2019-04-01] MEDS ORDERED: MAGNESIUM 2 G PREMIX 50 ML IV STA (19:05)
[2019-04-01] MEDS ORDERED: ALBUTEROL (0.083%) 2.5MG/3ML NEB HHN STA (19:05)
[2019-04-01] MEDS ORDERED: FUROSEMIDE 20MG/2ML VIAL IVP ONE (19:15)
[2019-04-01] MEDS ORDERED: ALBUTEROL (0.5%) 2.5MG/0.5ML NEB HHN ONE (19:25)
[2019-04-01 19:37] LABS: BASOPHILS % 0.5 % (0.0-2.0); HEMATOCRIT. 42.8 % (36.0-48.0); HEMOGLOBIN. 13.8 g/dL (12.0-16.0); LYMPHOCYTES % 12.8 % (20.0-50.0); MEAN CORPUSCULAR HEMOGLOBIN 30.2 pg (28.0-32.0); MEAN PLATELET VOLUME 8.3 fl (7.4-10.4); MONOCYTES % 5.8 % (2.0-8.0); NEUTROPHILS % 79.9 % (40.0-76.0); PLATELET 158 x1000/uL (130-400); RED BLOOD CELL COUNT 4.55 mill/uL (4.2-5.4); RED CELL DISTRIBUTION WIDTH 15.8 % (11.6-14.6)
[2019-04-01 19:40] LABS: CHLORIDE 109 mEq/L (98-107); PROTHROMBIN TIME 10.3 sec (9.6-11.0)
[2019-04-01] MEDS ORDERED: LEVOFLOXACIN 500MG PREMIX 100 ML IV ONE (19:45)
[2019-04-01] MEDS ORDERED: HYDRALAZINE 20MG/ML VIAL IV ONE (20:15)
[2019-04-01] MEDS ORDERED: SODIUM CHLORIDE 0.9% 1000ML BAG (SEPSIS BOLUS) IV ONE (20:15)
[2019-04-01 20:55] LABS: CLARITY URINE CLOUDY (CLEAR); COLOR URINE YELLOW (YELLOW); KETONES URINE NEGATIVE (NEGATIVE); LEUKOCYTE ESTERASE URINE NEGATIVE (NEGATIVE); NITRITE URINE NEGATIVE (NEGATIVE); OCCULT BLOOD URINE 2+ (NEGATIVE); PH URINE 6.5 (4.5-8.0); PROTEIN URINE NEGATIVE (NEGATIVE); SPECIFIC GRAVITY URINE 1.011 (1.005-1.030); UROBILINOGEN URINE 0.2 E.U./dL (0.2-1.0)
[2019-04-01] MEDS ORDERED: ENALAPRIL 2.5MG/2ML VIAL 2ML IV ONE (23:15)
[2019-04-01] MEDS ORDERED: FUROSEMIDE 40MG/4ML VIAL IVP ONE (23:45)
[2019-04-02 00:56] VITALS: BP 187/99
[2019-04-02 02:07] VITALS: BP 187/99
[2019-04-02 04:00] VITALS: BP 150/65
[2019-04-02] MEDS ORDERED: CLONIDINE 0.1MG TABLET PO PRN (04:00)
[2019-04-02] MEDS ORDERED: DEXTROSE 50% WATER 50ML SYRINGE IV PRN (04:00)
[2019-04-02] MEDS: ALBUTEROL (0.083%) 2.5MG/3ML NEB HHN SCH ×5 (05:37→21:14)
[2019-04-02] MEDS: BLOOD SUGAR DIAGNOSTIC STRIP TEST SCH ×4 (06:37→21:49)
[2019-04-02] MEDS: INSULIN LISPRO 100 UNITS/ML SUBCUT SCH ×4 (06:37→21:00)
[2019-04-02] MEDS: CEFTRIAXONE 1 G PREMIX 50 ML IV SCH (06:50)
[2019-04-02] MEDS: LISINOPRIL 20MG TABLET PO SCH ×2 (07:56→21:49)
[2019-04-02] MEDS: PANTOPRAZOLE SODIUM 40 MG/VIAL IV SCH (07:57)
[2019-04-02] MEDS: ENOXAPARIN 40MG/0.4ML SYR SUBCUT SCH (07:58)
[2019-04-02] MEDS ORDERED: FUROSEMIDE 40MG/4ML VIAL IVP SCH (09:00)
[2019-04-02] MEDS ORDERED: ASPIRIN 81MG TABLET PO SCH (09:00)
[2019-04-02] MEDS: METOPROLOL TARTRATE 50MG TABLET PO SCH ×2 (10:52→21:49)
[2019-04-02] MEDS: METHYLPREDNISOLONE SOD SUCC 40 MG/ML VIAL IV SCH (10:52)
[2019-04-02] MEDS: ATORVASTATIN CALCIUM 20MG TABLET PO SCH (10:52)
[2019-04-02] MEDS: AZITHROMYCIN 500 MG in DEXT 5% WATER 250 ML IV SCH (11:00)
[2019-04-02] MEDS: CLOPIDOGREL 75MG TABLET PO SCH (11:01)
[2019-04-02 16:00] VITALS: BP 132/72
[2019-04-02] MEDS: FUROSEMIDE 40MG/4ML VIAL IVP SCH (18:39)
[2019-04-02 20:00] VITALS: BP 128/58
[2019-04-03] VITALS: BP 131/69
[2019-04-03] MEDS: ALBUTEROL (0.083%) 2.5MG/3ML NEB HHN SCH ×6 (01:09→21:25)
[2019-04-03 04:00] VITALS: BP 154/88
[2019-04-03] MEDS: CEFTRIAXONE 1 G PREMIX 50 ML IV SCH (05:10)
[2019-04-03] MEDS: INSULIN LISPRO 100 UNITS/ML SUBCUT SCH ×4 (06:24→20:22)
[2019-04-03] MEDS: BLOOD SUGAR DIAGNOSTIC STRIP TEST SCH ×4 (06:24→20:09)
[2019-04-03 07:43] LABS: BASOPHILS % 0.2 % (0.0-2.0); EOSINOPHILS % 0.1 % (0.0-5.0); HEMATOCRIT. 40.8 % (36.0-48.0); HEMOGLOBIN. 13.5 g/dL (12.0-16.0); LYMPHOCYTES % 13.6 % (20.0-50.0); MEAN CORPUSCULAR HEMOGLOBIN 30.5 pg (28.0-32.0); MEAN CORPUSCULAR VOLUME 92.5 fL (81.0-99.0); MEAN PLATELET VOLUME 8.7 fl (7.4-10.4); MONOCYTES % 8.3 % (2.0-8.0); NEUTROPHILS % 77.8 % (40.0-76.0); PLATELET 164 x1000/uL (130-400); RED BLOOD CELL COUNT 4.42 mill/uL (4.2-5.4); RED CELL DISTRIBUTION WIDTH 15.4 % (11.6-14.6)
[2019-04-03 08:00] VITALS: BP 132/73
[2019-04-03] MEDS: ENOXAPARIN 40MG/0.4ML SYR SUBCUT SCH (09:43)
[2019-04-03] MEDS: FUROSEMIDE 40MG/4ML VIAL IVP SCH ×2 (09:43→16:54)
[2019-04-03] MEDS: PANTOPRAZOLE SODIUM 40 MG/VIAL IV SCH (09:43)
[2019-04-03] MEDS: ASPIRIN 81MG EC TABLET PO SCH (09:43)
[2019-04-03] MEDS: CLOPIDOGREL 75MG TABLET PO SCH (09:43)
[2019-04-03] MEDS: METHYLPREDNISOLONE SOD SUCC 40 MG/ML VIAL IV SCH (09:43)
[2019-04-03] MEDS: ATORVASTATIN CALCIUM 20MG TABLET PO SCH (09:44)
[2019-04-03] MEDS: METOPROLOL TARTRATE 50MG TABLET PO SCH ×2 (09:44→20:16)
[2019-04-03] MEDS: LISINOPRIL 20MG TABLET PO SCH ×2 (09:45→20:16)
[2019-04-03] MEDS: AZITHROMYCIN 500 MG in DEXT 5% WATER 250 ML IV SCH (11:46)
[2019-04-03 12:00] VITALS: BP 129/52
[2019-04-03 16:00] VITALS: BP 170/92
[2019-04-03] MEDS ORDERED: MORPHINE SULFATE 2 MG/ML CPJ (NOT FOR IM USE) IV PRN (19:15)
[2019-04-03] MEDS ORDERED: GUAIFENESIN/DM 600MG/30MG ER TAB 12HR PO PRN (19:15)
[2019-04-03 20:00] VITALS: BP 158/61
[2019-04-04] VITALS: BP 139/71
[2019-04-04] MEDS: ALBUTEROL (0.083%) 2.5MG/3ML NEB HHN SCH ×5 (01:13→16:15)
[2019-04-04 04:00] VITALS: BP 148/77
[2019-04-04] MEDS: CEFTRIAXONE 1 G PREMIX 50 ML IV SCH (05:10)
[2019-04-04] MEDS: BLOOD SUGAR DIAGNOSTIC STRIP TEST SCH ×3 (05:50→17:37)
[2019-04-04] MEDS: INSULIN LISPRO 100 UNITS/ML SUBCUT SCH ×3 (07:15→18:28)
[2019-04-04 08:00] VITALS: BP 153/60
[2019-04-04 08:00] LABS: BASOPHILS % 0.2 % (0.0-2.0); EOSINOPHILS % 0.2 % (0.0-5.0); HEMATOCRIT. 37.8 % (36.0-48.0); HEMOGLOBIN. 12.4 g/dL (12.0-16.0); LYMPHOCYTES % 19.3 % (20.0-50.0); MEAN CORPUSCULAR HEMOGLOBIN 30.4 pg (28.0-32.0); MEAN CORPUSCULAR VOLUME 92.7 fL (81.0-99.0); MEAN PLATELET VOLUME 8.7 fl (7.4-10.4); MONOCYTES % 10.1 % (2.0-8.0); NEUTROPHILS % 70.2 % (40.0-76.0); PLATELET 166 x1000/uL (130-400); RED BLOOD CELL COUNT 4.08 mill/uL (4.2-5.4); RED CELL DISTRIBUTION WIDTH 15.5 % (11.6-14.6)
[2019-04-04] MEDS: PANTOPRAZOLE SODIUM 40 MG/VIAL IV SCH (08:28)
[2019-04-04] MEDS: FUROSEMIDE 40MG/4ML VIAL IVP SCH ×2 (08:28→18:28)
[2019-04-04] MEDS: METHYLPREDNISOLONE SOD SUCC 40 MG/ML VIAL IV SCH (08:28)
[2019-04-04] MEDS: ATORVASTATIN CALCIUM 20MG TABLET PO SCH (08:29)
[2019-04-04] MEDS: ASPIRIN 81MG EC TABLET PO SCH (08:29)
[2019-04-04] MEDS: LISINOPRIL 20MG TABLET PO SCH (08:29)
[2019-04-04] MEDS: CLOPIDOGREL 75MG TABLET PO SCH (08:29)
[2019-04-04] MEDS: ENOXAPARIN 40MG/0.4ML SYR SUBCUT SCH (08:30)
[2019-04-04] MEDS: METOPROLOL TARTRATE 50MG TABLET PO SCH (08:30)
[2019-04-04 12:00] VITALS: BP 159/62
[2019-04-04] MEDS: AZITHROMYCIN 500 MG in DEXT 5% WATER 250 ML IV SCH (12:21)
[2019-04-04 16:00] VITALS: BP 150/90
[2019-04-04 16:43] VITALS: BP 150/89
[2019-04-05] MEDS ORDERED: FAMOTIDINE 20MG/2ML VIAL IV SCH (09:00)
[2019-04-05] MEDS ORDERED: AZITHROMYCIN 500 MG TABLET PO SCH (11:00)
== END 2019-04-04 19:10 | disposition home health service (06) | DRG 291 ==
LOC: ER 18:35 → EDBEDREQTM 20:14 → EDBEDREQ 20:14 → ENRESERV 23:34 → 5WST 04-02 00:56
PROVIDERS: ADMIT Internal Medicine; ATTEND Internal Medicine
DX: I13.0 Hypertensive heart and chronic kidney disease with heart failure and stage 1 through stage 4 chronic kidney disease, or unspecified chronic kidney disease (principal); J96.90 Respiratory failure, unspecified, unspecified whether with hypoxia or hypercapnia; J18.9 Pneumonia, unspecified organism; J44.1 Chronic obstructive pulmonary disease with (acute) exacerbation; J44.0 Chronic obstructive pulmonary disease with (acute) lower respiratory infection; N18.9 Chronic kidney disease, unspecified; E11.22 Type 2 diabetes mellitus with diabetic chronic kidney disease; F17.200 Nicotine dependence, unspecified, uncomplicated; M19.90 Unspecified osteoarthritis, unspecified site; I50.9 Heart failure, unspecified; I73.9 Peripheral vascular disease, unspecified; E11.51 Type 2 diabetes mellitus with diabetic peripheral angiopathy without gangrene; E78.5 Hyperlipidemia, unspecified; I25.10 Atherosclerotic heart disease of native coronary artery without angina pectoris; I25.5 Ischemic cardiomyopathy; I27.20 Pulmonary hypertension, unspecified; I25.2 Old myocardial infarction; Z86.73 Personal history of transient ischemic attack (TIA), and cerebral infarction without residual deficits; Z89.611 Acquired absence of right leg above knee; Z82.49 Family history of ischemic heart disease and other diseases of the circulatory system; Z86.79 Personal history of other diseases of the circulatory system; Z88.5 Allergy status to narcotic agent; Z89.511 Acquired absence of right leg below knee
CPT/HCPCS: 36415; 71045; 74176; 80048; 80061; 81003; 82962; 83036; 83605; 83735; 83880; 84145; 84484; 85379; 93005; 93306; 93970; 94640; 97162; C9113; J0360; J0456; J0696; J1650; J1815; J1940; J1956; J2270; J2920; J2930; J3475; J3490; J7030; J7040; J7060; J7611

== ENCOUNTER 2019-07-01 14:12 | Emergency (ER) | payer MEDICARE, MEDICAID ==
[~2019-07-01] VITALS: Ht 160 cm; Wt 73.0 kg
[2019-07-01] MEDS ORDERED: BACITRACIN 15GM TUBE TOP ONE (14:45)
[2019-07-01] MEDS ORDERED: TETANUS, DIPHTHERIA, PERTUSSIS VAC/PF 0.5ML (>7YR OLD) IM ONE (14:45)
[2019-07-01 16:53] VITALS: BP 137/82
== END 2019-07-01 16:53 | disposition home or self-care (01) ==
LOC: ER 14:12
DX: S81.811A Laceration without foreign body, right lower leg, initial encounter (principal); I10 Essential (primary) hypertension; J44.9 Chronic obstructive pulmonary disease, unspecified; Z88.5 Allergy status to narcotic agent; X58.XXXA Exposure to other specified factors, initial encounter; Y93.89 Activity, other specified; Y92.89 Other specified places as the place of occurrence of the external cause; Y99.8 Other external cause status
CPT/HCPCS: 73590; 73700; 90471; 90715; 99284

== ENCOUNTER 2019-08-27 20:28 | Inpatient (IN) | payer MEDICARE, MEDICAID ==
[~2019-08-27] VITALS: Ht 166.4 cm; Wt 73.9 kg
[~2019-08-27 20:28] MED LIST changes: -ASPI-1393 PO; +ASPI-1497 PO
[2019-08-27] MEDS ORDERED: SODIUM CHLORIDE 0.9% 1,000 ML IV ONE (21:22)
[2019-08-27 22:19] LABS: BASOPHILS % 0.4 % (0.0-2.0); EOSINOPHILS % 1.3 % (0.0-5.0); HEMATOCRIT. 38.4 % (36.0-48.0); HEMOGLOBIN. 11.8 g/dL (12.0-16.0); LYMPHOCYTES % 18.1 % (20.0-50.0); MEAN CORPUSCULAR VOLUME 90.7 fL (81.0-99.0); MEAN PLATELET VOLUME 8.8 fl (7.4-10.4); MONOCYTES % 9.4 % (2.0-8.0); NEUTROPHILS % 70.8 % (40.0-76.0); PLATELET 205 x1000/uL (130-400); RED BLOOD CELL COUNT 4.23 mill/uL (4.2-5.4); RED CELL DISTRIBUTION WIDTH 16.3 % (11.6-14.6)
[2019-08-27 22:22] LABS: CHLORIDE 111 mEq/L (98-107)
[2019-08-27 22:24] LABS: PROTHROMBIN TIME 10.5 sec (9.6-11.0)
[2019-08-27 23:37] LABS: CLARITY URINE CLEAR (CLEAR); COLOR URINE YELLOW (YELLOW); KETONES URINE NEGATIVE (NEGATIVE); LEUKOCYTE ESTERASE URINE NEGATIVE (NEGATIVE); NITRITE URINE POSITIVE (NEGATIVE); OCCULT BLOOD URINE NEGATIVE (NEGATIVE); PH URINE 5.5 (4.5-8.0); PROTEIN URINE 1+ (NEGATIVE); SPECIFIC GRAVITY URINE 1.021 (1.005-1.030)
[2019-08-28] MEDS ORDERED: KETOROLAC 15MG/ML VIAL IV ONE (01:30)
[2019-08-28] MEDS ORDERED: CLONIDINE 0.2MG TABLET PO ONE (02:30)
[2019-08-28] MEDS ORDERED: ASPIRIN 325MG EC TABLET PO SCH (02:30)
[2019-08-28] MEDS ORDERED: CEFTRIAXONE 1 G PREMIX 50 ML IV SCH (03:00)
[2019-08-28] MEDS ORDERED: VANCOMYCIN 1 G PREMIX 200 ML IV SCH (06:00)
[2019-08-28] MEDS ORDERED: PIPERACILLIN/TAZ 3.375G PREMIX 50 ML IV SCH (06:00)
[2019-08-28] MEDS ORDERED: LORAZEPAM 2MG/ML CPJ IV PRN (07:45)
[2019-08-28] MEDS ORDERED: ACETAMINOPHEN 325MG TABLET PO PRN (07:45)
[2019-08-28] MEDS ORDERED: IPRATROPIUM/ALBUTEROL 0.5-3(2.5)MG/3ML NEB NEB PRN (07:45)
[2019-08-28] MEDS ORDERED: ONDANSETRON HCL 4MG/2ML INJ IV PRN (07:45)
[2019-08-28] MEDS ORDERED: GUAIFENESIN 200MG/10ML SUGAR FREE UDC PO PRN (07:45)
[2019-08-28] MEDS ORDERED: MAGNESIUM/ALUMINUM HYDROXIDE/SIMETHICONE 30ML UDC PO PRN (07:45)
[2019-08-28] MEDS ORDERED: NA PHOS,M-B/NA PHOS,DI-BA ENEMA 118ML PR PRN (07:45)
[2019-08-28] MEDS ORDERED: HYDROCODONE/ACETAMINOPHEN 10/325MG TABLET PO PRN (07:45)
[2019-08-28] MEDS ORDERED: DIPHENHYDRAMINE 50MG/ML VIAL IV PRN (07:45)
[2019-08-28] MEDS ORDERED: DEXTROSE 50% WATER 50ML SYRINGE IV PRN (07:45)
[2019-08-28] MEDS ORDERED: DOCUSATE SODIUM 100MG CAPSULE PO PRN (07:45)
[2019-08-28] MEDS ORDERED: CEFTRIAXONE 1 G PREMIX 50 ML IV NR (08:15)
[2019-08-28] MEDS: ENOXAPARIN 40MG/0.4ML SYR SUBCUT SCH (08:45)
[2019-08-28 09:48] VITALS: BP 133/69
[2019-08-28 10:00] VITALS: BP 133/69
[2019-08-28] MEDS: SODIUM CHLORIDE 0.45% 1,000 ML IV SCH (10:12)
[2019-08-28 12:00] VITALS: BP 145/77
[2019-08-28] MEDS: INSULIN LISPRO 100 UNITS/ML SUBCUT SCH ×4 (12:09→21:09)
[2019-08-28] MEDS: BLOOD SUGAR DIAGNOSTIC STRIP TEST SCH ×3 (12:09→20:56)
[2019-08-28] MEDS: SODIUM CHLORIDE 0.9% INJ 3ML FLUSH IVF SCH ×2 (14:25→21:06)
[2019-08-28 14:46] LABS: T4 FREE 1.24 ng/dL (0.76-1.46)
[2019-08-28 16:00] VITALS: BP 152/82
[2019-08-28 16:10] LABS: CREATINE KINASE MB FRACTION 2.5 ng/mL (0.5-3.6)
[2019-08-28 20:00] VITALS: BP 168/91
[2019-08-28] MEDS: METHYLPREDNISOLONE SOD SUCC 40 MG/ML VIAL IV SCH (20:54)
[2019-08-28] MEDS: CLONIDINE 0.1MG TABLET PO PRN (21:07)
[2019-08-28] MEDS: AZITHROMYCIN 500 MG in DEXT 5% WATER 250 ML IV SCH (22:00)
[2019-08-28] MEDS: IPRATROPIUM/ALBUTEROL 0.5-3(2.5)MG/3ML NEB HHN SCH (22:05)
[2019-08-29] VITALS (7 sets, daily range): BP systolic 117–164; BP diastolic 53–91
[2019-08-29 00:17] LABS: CREATINE KINASE MB FRACTION 1.9 ng/mL (0.5-3.6)
[2019-08-29] MEDS: IPRATROPIUM/ALBUTEROL 0.5-3(2.5)MG/3ML NEB HHN SCH ×6 (00:39→20:21)
[2019-08-29] MEDS: METHYLPREDNISOLONE SOD SUCC 40 MG/ML VIAL IV SCH ×3 (04:51→20:40)
[2019-08-29] MEDS: SODIUM CHLORIDE 0.9% INJ 3ML FLUSH IVF SCH ×3 (05:06→21:54)
[2019-08-29] MEDS: BLOOD SUGAR DIAGNOSTIC STRIP TEST SCH ×4 (06:01→20:40)
[2019-08-29] MEDS: INSULIN LISPRO 100 UNITS/ML SUBCUT SCH ×4 (06:34→20:40)
[2019-08-29] MEDS ORDERED: CEFTRIAXONE 1 G PREMIX 50 ML IV SCH (07:00)
[2019-08-29 08:01] LABS: HEMATOCRIT. 34.9 % (36.0-48.0); MEAN CORPUSCULAR HEMOGLOBIN 28.4 pg (28.0-32.0); MEAN PLATELET VOLUME 9.1 fl (7.4-10.4); PLATELET 190 x1000/uL (130-400); RED BLOOD CELL COUNT 3.88 mill/uL (4.2-5.4)
[2019-08-29 08:04] LABS: CHLORIDE 110 mEq/L (98-107)
[2019-08-29 08:15] LABS: CREATINE KINASE 90 IU/L (26-192)
[2019-08-29 08:21] LABS: CREATINE KINASE MB FRACTION 2.1 ng/mL (0.5-3.6)
[2019-08-29] MEDS: ENOXAPARIN 40MG/0.4ML SYR SUBCUT SCH (08:47)
[2019-08-29] MEDS: SODIUM CHLORIDE 0.45% 1,000 ML IV SCH (10:00)
[2019-08-29] MEDS: CLONIDINE 0.1MG TABLET PO PRN (10:04)
[2019-08-29 10:33] LABS: PLATELET ESTIMATE NORMAL
[2019-08-29] MEDS: HYDRALAZINE 20MG/ML VIAL IV PRN (12:39)
[2019-08-29] MEDS ORDERED: SORBITOL 70% SOLN 30ML PO SCH (14:00)
[2019-08-29] MEDS: AZITHROMYCIN 500 MG in DEXT 5% WATER 250 ML IV SCH (20:40)
[2019-08-30] VITALS: BP 172/89
[2019-08-30] MEDS: HYDRALAZINE 20MG/ML VIAL IV PRN ×2 (01:00→09:53)
[2019-08-30] MEDS: IPRATROPIUM/ALBUTEROL 0.5-3(2.5)MG/3ML NEB HHN SCH ×6 (01:02→20:11)
[2019-08-30 04:00] VITALS: BP 160/74
[2019-08-30] MEDS: METHYLPREDNISOLONE SOD SUCC 40 MG/ML VIAL IV SCH ×3 (04:56→20:52)
[2019-08-30] MEDS: CLONIDINE 0.1MG TABLET PO PRN (04:56)
[2019-08-30] MEDS: BLOOD SUGAR DIAGNOSTIC STRIP TEST SCH ×4 (06:21→20:53)
[2019-08-30] MEDS: SODIUM CHLORIDE 0.9% INJ 3ML FLUSH IVF SCH ×3 (06:21→22:15)
[2019-08-30] MEDS: CEFTRIAXONE 1 G PREMIX 50 ML IV SCH (06:21)
[2019-08-30] MEDS: INSULIN LISPRO 100 UNITS/ML SUBCUT SCH ×4 (06:22→21:00)
[2019-08-30 08:00] VITALS: BP 166/86
[2019-08-30] MEDS: ENOXAPARIN 40MG/0.4ML SYR SUBCUT SCH (09:52)
[2019-08-30] MEDS: ASPIRIN 81MG TABLET PO SCH (09:53)
[2019-08-30 12:00] VITALS: BP 149/73
[2019-08-30 16:00] VITALS: BP 165/85
[2019-08-30] MEDS: LOSARTAN POTASSIUM 50 MG TABLET PO SCH (16:33)
[2019-08-30] MEDS: SODIUM CHLORIDE 0.45% 1,000 ML IV SCH (16:34)
[2019-08-30] MEDS: MORPHINE SULFATE 2 MG/ML CPJ (NOT FOR IM USE) IV PRN (17:25)
[2019-08-30 20:00] VITALS: BP 132/47
[2019-08-30] MEDS: AZITHROMYCIN 500 MG in DEXT 5% WATER 250 ML IV SCH (20:52)
[2019-08-30] MEDS: CARVEDILOL 3.125 MG TABLET PO SCH (20:58)
[2019-08-31] VITALS: BP 131/71
[2019-08-31] MEDS: IPRATROPIUM/ALBUTEROL 0.5-3(2.5)MG/3ML NEB HHN SCH ×7 (00:07→23:38)
[2019-08-31] MEDS: MORPHINE SULFATE 2 MG/ML CPJ (NOT FOR IM USE) IV PRN ×2 (00:35→20:20)
[2019-08-31 04:00] VITALS: BP 152/89
[2019-08-31] MEDS: METHYLPREDNISOLONE SOD SUCC 40 MG/ML VIAL IV SCH ×3 (04:46→20:21)
[2019-08-31] MEDS: SODIUM CHLORIDE 0.9% INJ 3ML FLUSH IVF SCH ×3 (05:52→21:41)
[2019-08-31] MEDS: BLOOD SUGAR DIAGNOSTIC STRIP TEST SCH ×4 (05:57→20:35)
[2019-08-31] MEDS: CEFTRIAXONE 1 G PREMIX 50 ML IV SCH (06:03)
[2019-08-31] MEDS: INSULIN LISPRO 100 UNITS/ML SUBCUT SCH ×4 (06:18→20:39)
[2019-08-31 08:00] VITALS: BP 142/70
[2019-08-31] MEDS: LOSARTAN POTASSIUM 50 MG TABLET PO SCH (09:13)
[2019-08-31] MEDS: CARVEDILOL 3.125 MG TABLET PO SCH ×2 (09:13→20:21)
[2019-08-31] MEDS: ASPIRIN 81MG TABLET PO SCH (09:13)
[2019-08-31] MEDS: ENOXAPARIN 40MG/0.4ML SYR SUBCUT SCH (09:14)
[2019-08-31 12:00] VITALS: BP 143/84
[2019-08-31] MEDS: SODIUM CHLORIDE 0.45% 1,000 ML IV SCH (12:28)
[2019-08-31 16:00] VITALS: BP 160/84
[2019-08-31 20:00] VITALS: BP 148/70
[2019-08-31] MEDS: AZITHROMYCIN 500 MG in DEXT 5% WATER 250 ML IV SCH (20:21)
[2019-09-01] VITALS (8 sets, daily range): BP systolic 128–169; BP diastolic 66–89
[2019-09-01] MEDS: SODIUM CHLORIDE 0.45% 1,000 ML IV SCH (00:51)
[2019-09-01] MEDS: METHYLPREDNISOLONE SOD SUCC 40 MG/ML VIAL IV SCH ×3 (03:15→22:48)
[2019-09-01] MEDS: IPRATROPIUM/ALBUTEROL 0.5-3(2.5)MG/3ML NEB HHN SCH ×5 (04:40→21:20)
[2019-09-01] MEDS: INSULIN LISPRO 100 UNITS/ML SUBCUT SCH ×4 (06:01→21:00)
[2019-09-01] MEDS: BLOOD SUGAR DIAGNOSTIC STRIP TEST SCH ×4 (06:01→21:00)
[2019-09-01] MEDS: SODIUM CHLORIDE 0.9% INJ 3ML FLUSH IVF SCH ×3 (06:02→22:48)
[2019-09-01] MEDS: CEFTRIAXONE 1 G PREMIX 50 ML IV SCH (06:02)
[2019-09-01] MEDS: ENOXAPARIN 40MG/0.4ML SYR SUBCUT SCH (08:33)
[2019-09-01] MEDS: ASPIRIN 81MG TABLET PO SCH (08:33)
[2019-09-01] MEDS: CARVEDILOL 3.125 MG TABLET PO SCH (08:34)
[2019-09-01] MEDS: LOSARTAN POTASSIUM 50 MG TABLET PO SCH (08:34)
[2019-09-01] MEDS: MORPHINE SULFATE 2 MG/ML CPJ (NOT FOR IM USE) IV PRN (22:47)
[2019-09-02] MEDS ORDERED: CEFTRIAXONE 1,000 MG in DEXTROSE 5% WATER 50 ML IV SCH (07:00)
[2019-09-02] MEDS ORDERED: AZITHROMYCIN 500 MG TABLET PO SCH (21:00)
== END 2019-09-01 23:06 | DRG 190 ==
LOC: ER 20:28 → 5WST 08-28 02:27 → EDBEDREQTM 08-28 02:29 → EDBEDREQ 08-28 02:29 → ENRESERV 08-28 08:44
PROVIDERS: ADMIT Internal Medicine; ATTEND Internal Medicine
DX: J44.1 Chronic obstructive pulmonary disease with (acute) exacerbation (principal); J18.9 Pneumonia, unspecified organism; N39.0 Urinary tract infection, site not specified; I50.20 Unspecified systolic (congestive) heart failure; J96.10 Chronic respiratory failure, unspecified whether with hypoxia or hypercapnia; I13.0 Hypertensive heart and chronic kidney disease with heart failure and stage 1 through stage 4 chronic kidney disease, or unspecified chronic kidney disease; L97.929 Non-pressure chronic ulcer of unspecified part of left lower leg with unspecified severity; J44.0 Chronic obstructive pulmonary disease with (acute) lower respiratory infection; D63.8 Anemia in other chronic diseases classified elsewhere; E11.51 Type 2 diabetes mellitus with diabetic peripheral angiopathy without gangrene; E78.5 Hyperlipidemia, unspecified; F17.200 Nicotine dependence, unspecified, uncomplicated; G54.6 Phantom limb syndrome with pain; I25.10 Atherosclerotic heart disease of native coronary artery without angina pectoris; I25.5 Ischemic cardiomyopathy; I27.20 Pulmonary hypertension, unspecified; B35.1 Tinea unguium; E11.22 Type 2 diabetes mellitus with diabetic chronic kidney disease; N18.9 Chronic kidney disease, unspecified; E11.40 Type 2 diabetes mellitus with diabetic neuropathy, unspecified; E78.00 Pure hypercholesterolemia, unspecified; R26.9 Unspecified abnormalities of gait and mobility; G89.4 Chronic pain syndrome; K57.90 Diverticulosis of intestine, part unspecified, without perforation or abscess without bleeding; K59.00 Constipation, unspecified; L60.3 Nail dystrophy; Z88.5 Allergy status to narcotic agent; Z86.73 Personal history of transient ischemic attack (TIA), and cerebral infarction without residual deficits; I25.2 Old myocardial infarction; Z89.511 Acquired absence of right leg below knee; Z99.81 Dependence on supplemental oxygen; Z79.899 Other long term (current) drug therapy; Z79.82 Long term (current) use of aspirin
CPT/HCPCS: 36415; 71045; 74021; 74176; 80053; 80061; 81003; 82550; 82553; 82962; 83036; 83605; 83880; 84439; 84443; 84484; 85025; 85379; 92610; 93005; 93306; 93970; 94640; 97162; 99285; J0360; J0456; J0696; J1200; J1650; J1815; J1885; J2060; J2270; J2405; J2543; J2920; J3370; J7030; J7060

== ENCOUNTER 2019-09-01 23:08 | Inpatient (IN) | payer MEDICARE, MEDICAID ==
[~2019-09-01] VITALS: Ht 166.4 cm; Wt 73.9 kg
[2019-09-01 23:08] VITALS: BP_SYST 132; BP_DIAS 80; BP_DIAS 88
[2019-09-02] MEDS ORDERED: DOCUSATE SODIUM 100MG CAPSULE PO PRN (00:30)
[2019-09-02] MEDS ORDERED: MAGNESIUM/ALUMINUM HYDROXIDE/SIMETHICONE 30ML UDC PO PRN (00:30)
[2019-09-02] MEDS ORDERED: IPRATROPIUM/ALBUTEROL 0.5-3(2.5)MG/3ML NEB HHN PRN (00:30)
[2019-09-02] MEDS ORDERED: NA PHOS,M-B/NA PHOS,DI-BA ENEMA 118ML PR PRN (00:30)
[2019-09-02] MEDS ORDERED: ACETAMINOPHEN 325MG TABLET PO PRN (00:30)
[2019-09-02] MEDS ORDERED: LORAZEPAM 2MG/ML CPJ IV PRN (00:30)
[2019-09-02] MEDS ORDERED: DEXTROSE 50% WATER 50ML SYRINGE IV PRN (00:30)
[2019-09-02] MEDS ORDERED: HYDROCODONE/ACETAMINOPHEN 10/325MG TABLET PO PRN (00:30)
[2019-09-02] MEDS ORDERED: MORPHINE SULFATE 2 MG/ML CPJ (NOT FOR IM USE) IV PRN (00:30)
[2019-09-02] MEDS ORDERED: CLONIDINE 0.1MG TABLET PO PRN (00:30)
[2019-09-02] MEDS ORDERED: GUAIFENESIN 200MG/10ML SUGAR FREE UDC PO PRN (00:30)
[2019-09-02] MEDS ORDERED: ONDANSETRON HCL 4MG/2ML INJ IV PRN (00:30)
[2019-09-02] MEDS ORDERED: METHYLPREDNISOLONE SOD SUCC 40 MG/ML VIAL IV SCH (02:00)
[2019-09-02] MEDS: IPRATROPIUM/ALBUTEROL 0.5-3(2.5)MG/3ML NEB HHN SCH ×5 (03:41→20:45)
[2019-09-02] MEDS: CEFTRIAXONE 1,000 MG in DEXTROSE 5% WATER 50 ML IV SCH (05:24)
[2019-09-02] MEDS: METHYLPREDNISOLONE SOD SUCC 40 MG/ML VIAL IV SCH ×3 (05:24→21:44)
[2019-09-02] MEDS: SODIUM CHLORIDE 0.9% INJ 3ML FLUSH IVF SCH ×3 (05:24→21:44)
[2019-09-02] MEDS: SODIUM CHLORIDE 0.45% 1,000 ML IV SCH (05:26)
[2019-09-02] MEDS: BLOOD SUGAR DIAGNOSTIC STRIP TEST SCH ×4 (06:10→21:42)
[2019-09-02] MEDS: INSULIN LISPRO 100 UNITS/ML SUBCUT SCH ×4 (06:12→21:57)
[2019-09-02 07:01] LABS: HEMATOCRIT. 37.2 % (36.0-48.0); HEMOGLOBIN. 11.8 g/dL (12.0-16.0); MEAN CORPUSCULAR HEMOGLOBIN 28.3 pg (28.0-32.0); MEAN CORPUSCULAR VOLUME 89.2 fL (81.0-99.0); MEAN PLATELET VOLUME 8.4 fl (7.4-10.4); PLATELET 196 x1000/uL (130-400); RED BLOOD CELL COUNT 4.17 mill/uL (4.2-5.4); RED CELL DISTRIBUTION WIDTH 16.4 % (11.6-14.6)
[2019-09-02 07:27] LABS: CHLORIDE 104 mEq/L (98-107)
[2019-09-02 08:00] VITALS: BP 159/88
[2019-09-02] MEDS: ENOXAPARIN 40MG/0.4ML SYR SUBCUT SCH (10:08)
[2019-09-02] MEDS: ASPIRIN 81MG TABLET PO SCH (10:08)
[2019-09-02] MEDS: LOSARTAN POTASSIUM 50 MG TABLET PO SCH (10:09)
[2019-09-02] MEDS: CARVEDILOL 3.125 MG TABLET PO SCH ×2 (10:09→21:42)
[2019-09-02] MEDS ORDERED: HYDROCODONE/ACETAMINOPHEN 5/325MG TABLET PO PRN (15:15)
[2019-09-02 18:48] LABS: PLATELET ESTIMATE NORMAL
[2019-09-02 20:00] VITALS: BP 184/101
[2019-09-02] MEDS: LACTULOSE 20G/30ML UDC PO SCH (21:41)
[2019-09-02] MEDS: AZITHROMYCIN 500 MG TABLET PO SCH (21:42)
[2019-09-03] MEDS: IPRATROPIUM/ALBUTEROL 0.5-3(2.5)MG/3ML NEB HHN SCH ×6 (02:53→20:08)
[2019-09-03] MEDS: LACTULOSE 20G/30ML UDC PO SCH ×5 (04:00→20:00)
[2019-09-03] MEDS: SODIUM CHLORIDE 0.45% 1,000 ML IV SCH (04:47)
[2019-09-03] MEDS: METHYLPREDNISOLONE SOD SUCC 40 MG/ML VIAL IV SCH ×3 (06:09→22:17)
[2019-09-03] MEDS: CEFTRIAXONE 1,000 MG in DEXTROSE 5% WATER 50 ML IV SCH (06:10)
[2019-09-03] MEDS: SODIUM CHLORIDE 0.9% INJ 3ML FLUSH IVF SCH ×3 (06:28→22:17)
[2019-09-03] MEDS: BLOOD SUGAR DIAGNOSTIC STRIP TEST SCH ×4 (06:29→21:00)
[2019-09-03] MEDS: INSULIN LISPRO 100 UNITS/ML SUBCUT SCH ×4 (06:30→22:20)
[2019-09-03 08:09] VITALS: BP 174/78
[2019-09-03] MEDS: LOSARTAN POTASSIUM 50 MG TABLET PO SCH (09:15)
[2019-09-03] MEDS: ASPIRIN 81MG TABLET PO SCH (09:15)
[2019-09-03] MEDS: CARVEDILOL 3.125 MG TABLET PO SCH ×2 (09:15→22:18)
[2019-09-03] MEDS: ENOXAPARIN 40MG/0.4ML SYR SUBCUT SCH (09:16)
[2019-09-03] MEDS ORDERED: BISACODYL 5MG TABLET PO PRN (10:00)
[2019-09-03] MEDS: BISACODYL 5MG TABLET PO SCH (15:15)
[2019-09-03] MEDS: NICOTINE 7MG PATCH TD SCH (16:03)
[2019-09-03] MEDS: PSYLLIUM SEED PACKET PO SCH (16:03)
[2019-09-03] MEDS: NA PHOS,M-B/NA PHOS,DI-BA ENEMA 118ML PR PRN (18:28)
[2019-09-03 20:00] VITALS: BP 176/89
[2019-09-03 21:00] VITALS: BP 136/78
[2019-09-03] MEDS: AZITHROMYCIN 500 MG TABLET PO SCH (22:18)
[2019-09-03] MEDS: DIPHENHYDRAMINE 50MG/ML VIAL IV PRN (22:40)
[2019-09-04] MEDS: IPRATROPIUM/ALBUTEROL 0.5-3(2.5)MG/3ML NEB HHN SCH ×3 (00:27→20:22)
[2019-09-04] MEDS: SODIUM CHLORIDE 0.9% INJ 3ML FLUSH IVF SCH ×3 (05:43→22:00)
[2019-09-04] MEDS: METHYLPREDNISOLONE SOD SUCC 40 MG/ML VIAL IV SCH ×3 (05:43→21:20)
[2019-09-04] MEDS: SODIUM CHLORIDE 0.45% 1,000 ML IV SCH (05:43)
[2019-09-04] MEDS: CEFTRIAXONE 1,000 MG in DEXTROSE 5% WATER 50 ML IV SCH (05:44)
[2019-09-04] MEDS: BLOOD SUGAR DIAGNOSTIC STRIP TEST SCH ×4 (05:44→21:12)
[2019-09-04] MEDS: INSULIN LISPRO 100 UNITS/ML SUBCUT SCH ×4 (06:43→21:20)
[2019-09-04 06:53] LABS: HEMATOCRIT. 38.8 % (36.0-48.0); HEMOGLOBIN. 12.6 g/dL (12.0-16.0); MEAN CORPUSCULAR VOLUME 86.3 fL (81.0-99.0); MEAN PLATELET VOLUME 8.7 fl (7.4-10.4); PLATELET 195 x1000/uL (130-400)
[2019-09-04 06:58] LABS: CHLORIDE 103 mEq/L (98-107)
[2019-09-04 07:11] LABS: FOLIC ACID (FOLATE) SERUM 9.5 ng/mL (>5.38); PHOSPHORUS 3.2 mg/dL (2.5-4.9)
[2019-09-04 07:12] LABS: LDL CHOLESTEROL 114 mg/dL (5-100); TOTAL IRON BINDING CAPACITY 327 ug/dL (250-450)
[2019-09-04 07:14] LABS: HDL CHOLESTEROL 66 mg/dL (40-59)
[2019-09-04 08:00] VITALS: BP 120/81
[2019-09-04] MEDS: CARVEDILOL 3.125 MG TABLET PO SCH ×2 (08:58→21:21)
[2019-09-04] MEDS: BISACODYL 5MG TABLET PO SCH (08:58)
[2019-09-04] MEDS: PSYLLIUM SEED PACKET PO SCH ×2 (08:59→16:25)
[2019-09-04] MEDS: NICOTINE 7MG PATCH TD SCH (08:59)
[2019-09-04] MEDS: ASPIRIN 81MG TABLET PO SCH (08:59)
[2019-09-04] MEDS: LOSARTAN POTASSIUM 50 MG TABLET PO SCH (08:59)
[2019-09-04] MEDS: ENOXAPARIN 40MG/0.4ML SYR SUBCUT SCH (09:09)
[2019-09-04 18:52] LABS: PLATELET ESTIMATE NORMAL
[2019-09-04 20:00] VITALS: BP 136/88
[2019-09-04] MEDS: AZITHROMYCIN 500 MG TABLET PO SCH (21:21)
[2019-09-05] MEDS: IPRATROPIUM/ALBUTEROL 0.5-3(2.5)MG/3ML NEB HHN SCH ×5 (00:17→20:30)
[2019-09-05] MEDS: SODIUM CHLORIDE 0.45% 1,000 ML IV SCH (04:21)
[2019-09-05] MEDS: BLOOD SUGAR DIAGNOSTIC STRIP TEST SCH ×4 (05:46→21:13)
[2019-09-05] MEDS: METHYLPREDNISOLONE SOD SUCC 40 MG/ML VIAL IV SCH ×3 (05:46→21:13)
[2019-09-05] MEDS: SODIUM CHLORIDE 0.9% INJ 3ML FLUSH IVF SCH ×2 (05:46→14:34)
[2019-09-05 08:00] VITALS: BP 149/93
[2019-09-05] MEDS: NICOTINE 7MG PATCH TD SCH (08:44)
[2019-09-05] MEDS: PSYLLIUM SEED PACKET PO SCH ×2 (08:44→17:00)
[2019-09-05] MEDS: CARVEDILOL 3.125 MG TABLET PO SCH ×2 (08:45→21:13)
[2019-09-05] MEDS: ASPIRIN 81MG TABLET PO SCH (08:45)
[2019-09-05] MEDS: LOSARTAN POTASSIUM 50 MG TABLET PO SCH (08:45)
[2019-09-05] MEDS: BISACODYL 5MG TABLET PO SCH (08:45)
[2019-09-05] MEDS: ENOXAPARIN 40MG/0.4ML SYR SUBCUT SCH (08:45)
[2019-09-05] MEDS: INSULIN LISPRO 100 UNITS/ML SUBCUT SCH ×5 (08:46→22:14)
[2019-09-05] MEDS: LACTULOSE 20G/30ML UDC PO PRN (17:12)
[2019-09-05 20:00] VITALS: BP 167/93
[2019-09-05] MEDS: AZITHROMYCIN 500 MG TABLET PO SCH (21:13)
[2019-09-06] MEDS: IPRATROPIUM/ALBUTEROL 0.5-3(2.5)MG/3ML NEB HHN SCH ×6 (01:00→21:20)
[2019-09-06] MEDS: METHYLPREDNISOLONE SOD SUCC 40 MG/ML VIAL IV SCH ×3 (06:31→21:36)
[2019-09-06] MEDS: BLOOD SUGAR DIAGNOSTIC STRIP TEST SCH ×4 (06:31→21:32)
[2019-09-06] MEDS: SODIUM CHLORIDE 0.9% INJ 3ML FLUSH IVF SCH ×2 (06:32→14:56)
[2019-09-06] MEDS: INSULIN LISPRO 100 UNITS/ML SUBCUT SCH ×4 (06:32→21:36)
[2019-09-06 08:15] VITALS: BP 159/94
[2019-09-06] MEDS: PSYLLIUM SEED PACKET PO SCH ×2 (08:43→16:54)
[2019-09-06] MEDS: CARVEDILOL 3.125 MG TABLET PO SCH ×2 (08:43→21:36)
[2019-09-06] MEDS: LOSARTAN POTASSIUM 50 MG TABLET PO SCH (08:43)
[2019-09-06] MEDS: ASPIRIN 81MG TABLET PO SCH (08:43)
[2019-09-06] MEDS: ENOXAPARIN 40MG/0.4ML SYR SUBCUT SCH (08:44)
[2019-09-06] MEDS: BISACODYL 5MG TABLET PO SCH (08:44)
[2019-09-06] MEDS: NICOTINE 7MG PATCH TD SCH (08:44)
[2019-09-06 13:51] VITALS: BP 135/76
[2019-09-06 21:00] VITALS: BP 156/79
[2019-09-06] MEDS: AZITHROMYCIN 500 MG TABLET PO SCH (21:35)
[2019-09-07] MEDS: IPRATROPIUM/ALBUTEROL 0.5-3(2.5)MG/3ML NEB HHN SCH ×6 (04:32→23:16)
[2019-09-07] MEDS: METHYLPREDNISOLONE SOD SUCC 40 MG/ML VIAL IV SCH ×3 (05:42→22:26)
[2019-09-07] MEDS: SODIUM CHLORIDE 0.9% INJ 3ML FLUSH IVF SCH ×3 (05:42→22:26)
[2019-09-07] MEDS: BLOOD SUGAR DIAGNOSTIC STRIP TEST SCH ×4 (06:25→21:29)
[2019-09-07] MEDS: INSULIN LISPRO 100 UNITS/ML SUBCUT SCH ×4 (09:00→22:45)
[2019-09-07] MEDS: NICOTINE 7MG PATCH TD SCH (09:21)
[2019-09-07] MEDS: LOSARTAN POTASSIUM 50 MG TABLET PO SCH (09:21)
[2019-09-07] MEDS: CARVEDILOL 3.125 MG TABLET PO SCH ×2 (09:21→22:28)
[2019-09-07] MEDS: ASPIRIN 81MG TABLET PO SCH (09:21)
[2019-09-07] MEDS: PSYLLIUM SEED PACKET PO SCH ×2 (09:22→16:36)
[2019-09-07] MEDS: BISACODYL 5MG TABLET PO SCH (09:22)
[2019-09-07] MEDS: ENOXAPARIN 40MG/0.4ML SYR SUBCUT SCH (09:22)
[2019-09-07 10:06] VITALS: BP 140/85
[2019-09-07 19:06] LABS: 25-HYDROXY VITAMIN D3 23 ng/mL (.)
[2019-09-07 20:00] VITALS: BP 140/76
[2019-09-07] MEDS: AZITHROMYCIN 500 MG TABLET PO SCH (22:30)
[2019-09-07] MEDS: SODIUM CHLORIDE 0.45% 1,000 ML IV SCH (22:31)
[2019-09-07] MEDS: DIPHENHYDRAMINE 50MG/ML VIAL IV PRN (23:03)
[2019-09-08] VITALS: BP 132/69
[2019-09-08] MEDS: SODIUM CHLORIDE 0.45% 1,000 ML IV SCH ×2 (02:34→02:35)
[2019-09-08] MEDS: SODIUM CHLORIDE 0.9% INJ 3ML FLUSH IVF SCH ×3 (05:29→21:59)
[2019-09-08] MEDS: METHYLPREDNISOLONE SOD SUCC 40 MG/ML VIAL IV SCH ×2 (05:30→13:23)
[2019-09-08] MEDS: BLOOD SUGAR DIAGNOSTIC STRIP TEST SCH ×4 (05:30→21:59)
[2019-09-08] MEDS: IPRATROPIUM/ALBUTEROL 0.5-3(2.5)MG/3ML NEB HHN SCH ×4 (07:43→21:04)
[2019-09-08 08:12] VITALS: BP 158/76
[2019-09-08] MEDS: INSULIN LISPRO 100 UNITS/ML SUBCUT SCH ×4 (09:00→21:00)
[2019-09-08] MEDS: NICOTINE 7MG PATCH TD SCH (09:03)
[2019-09-08] MEDS: LOSARTAN POTASSIUM 50 MG TABLET PO SCH (09:03)
[2019-09-08] MEDS: BISACODYL 5MG TABLET PO SCH (09:03)
[2019-09-08] MEDS: CARVEDILOL 3.125 MG TABLET PO SCH ×2 (09:03→21:59)
[2019-09-08] MEDS: ENOXAPARIN 40MG/0.4ML SYR SUBCUT SCH (09:03)
[2019-09-08] MEDS: ASPIRIN 81MG TABLET PO SCH (09:03)
[2019-09-08] MEDS: PSYLLIUM SEED PACKET PO SCH ×2 (09:03→16:51)
[2019-09-08] MEDS ORDERED: ERGOCALCIFEROL 50000UNITS CAPSULE PO SCH (15:00)
[2019-09-08] MEDS: LACTULOSE 20G/30ML UDC PO PRN (16:51)
[2019-09-08] MEDS: FUROSEMIDE 40MG TABLET PO SCH (16:51)
[2019-09-08 20:00] VITALS: BP 144/100
[2019-09-08 21:00] VITALS: BP 138/80
[2019-09-08] MEDS: ATORVASTATIN CALCIUM 10MG TABLET PO SCH (21:59)
[2019-09-08] MEDS: NA PHOS,M-B/NA PHOS,DI-BA ENEMA 118ML PR PRN (22:14)
[2019-09-09] MEDS: IPRATROPIUM/ALBUTEROL 0.5-3(2.5)MG/3ML NEB HHN SCH ×5 (00:23→20:35)
[2019-09-09] MEDS: SODIUM CHLORIDE 0.9% INJ 3ML FLUSH IVF SCH ×3 (06:30→21:11)
[2019-09-09] MEDS: BLOOD SUGAR DIAGNOSTIC STRIP TEST SCH ×4 (06:31→21:11)
[2019-09-09] MEDS: FUROSEMIDE 40MG TABLET PO SCH ×2 (06:31→17:09)
[2019-09-09] MEDS: INSULIN LISPRO 100 UNITS/ML SUBCUT SCH ×4 (07:15→22:21)
[2019-09-09 07:23] LABS: BASOPHILS % 0.8 % (0.0-2.0); EOSINOPHILS % 0.2 % (0.0-5.0); HEMOGLOBIN. 12.5 g/dL (12.0-16.0); MEAN CORPUSCULAR HEMOGLOBIN 28.2 pg (28.0-32.0); MEAN CORPUSCULAR VOLUME 87.6 fL (81.0-99.0); MEAN PLATELET VOLUME 7.9 fl (7.4-10.4); MONOCYTES % 6.1 % (2.0-8.0); NEUTROPHILS % 81.9 % (40.0-76.0); PLATELET 139 x1000/uL (130-400); RED BLOOD CELL COUNT 4.45 mill/uL (4.2-5.4); RED CELL DISTRIBUTION WIDTH 16.5 % (11.6-14.6)
[2019-09-09 07:55] LABS: CHLORIDE 104 mEq/L (98-107)
[2019-09-09 08:10] VITALS: BP 147/68
[2019-09-09] MEDS: LOSARTAN POTASSIUM 50 MG TABLET PO SCH (08:21)
[2019-09-09] MEDS: ENOXAPARIN 40MG/0.4ML SYR SUBCUT SCH (08:21)
[2019-09-09] MEDS: NICOTINE 7MG PATCH TD SCH (08:21)
[2019-09-09] MEDS: PREDNISONE 20MG TABLET PO SCH ×2 (08:21→17:09)
[2019-09-09] MEDS: ASPIRIN 81MG TABLET PO SCH (08:21)
[2019-09-09] MEDS: CARVEDILOL 3.125 MG TABLET PO SCH ×2 (08:22→21:11)
[2019-09-09] MEDS: PSYLLIUM SEED PACKET PO SCH ×2 (08:26→16:37)
[2019-09-09] MEDS: BISACODYL 5MG TABLET PO SCH (08:26)
[2019-09-09 20:00] VITALS: BP 140/78
[2019-09-09] MEDS: ATORVASTATIN CALCIUM 10MG TABLET PO SCH (21:11)
[2019-09-10] MEDS: IPRATROPIUM/ALBUTEROL 0.5-3(2.5)MG/3ML NEB HHN SCH ×4 (00:24→20:00)
[2019-09-10] MEDS: SODIUM CHLORIDE 0.9% INJ 3ML FLUSH IVF SCH ×3 (06:26→22:27)
[2019-09-10] MEDS: INSULIN LISPRO 100 UNITS/ML SUBCUT SCH ×4 (06:26→22:31)
[2019-09-10] MEDS: BLOOD SUGAR DIAGNOSTIC STRIP TEST SCH ×4 (06:26→21:00)
[2019-09-10] MEDS: FUROSEMIDE 40MG TABLET PO SCH ×2 (06:27→17:41)
[2019-09-10 08:25] VITALS: BP 151/64
[2019-09-10] MEDS: PSYLLIUM SEED PACKET PO SCH ×2 (09:00→17:00)
[2019-09-10] MEDS: ENOXAPARIN 40MG/0.4ML SYR SUBCUT SCH (09:50)
[2019-09-10] MEDS: NICOTINE 7MG PATCH TD SCH (09:50)
[2019-09-10] MEDS: LOSARTAN POTASSIUM 50 MG TABLET PO SCH (09:51)
[2019-09-10] MEDS: PREDNISONE 20MG TABLET PO SCH ×2 (09:51→17:41)
[2019-09-10] MEDS: BISACODYL 5MG TABLET PO SCH (09:51)
[2019-09-10] MEDS: CARVEDILOL 3.125 MG TABLET PO SCH ×2 (09:51→22:27)
[2019-09-10] MEDS: ASPIRIN 81MG TABLET PO SCH (09:51)
[2019-09-10 13:40] LABS: CHLORIDE 101 mEq/L (98-107)
[2019-09-10 20:00] VITALS: BP 178/85
[2019-09-10 21:00] VITALS: BP 146/78
[2019-09-10] MEDS: ATORVASTATIN CALCIUM 10MG TABLET PO SCH (22:26)
[2019-09-11] MEDS: IPRATROPIUM/ALBUTEROL 0.5-3(2.5)MG/3ML NEB HHN SCH ×4 (00:21→12:00)
[2019-09-11] MEDS: SODIUM CHLORIDE 0.9% INJ 3ML FLUSH IVF SCH (06:29)
[2019-09-11] MEDS: FUROSEMIDE 40MG TABLET PO SCH (06:30)
[2019-09-11] MEDS: BLOOD SUGAR DIAGNOSTIC STRIP TEST SCH ×2 (06:30→11:15)
[2019-09-11] MEDS: INSULIN LISPRO 100 UNITS/ML SUBCUT SCH (07:06)
[2019-09-11 07:26] LABS: CHLORIDE 102 mEq/L (98-107)
[2019-09-11 08:00] VITALS: BP 158/83
[2019-09-11] MEDS: ENOXAPARIN 40MG/0.4ML SYR SUBCUT SCH (08:53)
[2019-09-11] MEDS: PREDNISONE 20MG TABLET PO SCH (08:54)
[2019-09-11] MEDS: CARVEDILOL 3.125 MG TABLET PO SCH (08:54)
[2019-09-11] MEDS: ASPIRIN 81MG TABLET PO SCH (08:54)
[2019-09-11] MEDS: LOSARTAN POTASSIUM 50 MG TABLET PO SCH (08:54)
[2019-09-11] MEDS: NICOTINE 7MG PATCH TD SCH (08:54)
[2019-09-11] MEDS: BISACODYL 5MG TABLET PO SCH (08:55)
[2019-09-11] MEDS: PSYLLIUM SEED PACKET PO SCH (08:55)
[2019-09-11 10:57] VITALS: BP 135/78
== END 2019-09-11 12:23 | disposition home health service (06) | DRG 190 ==
PROVIDERS: ADMIT Physical Medicine & Rehabilitation Spinal Cord Injury Medicine; ATTEND Internal Medicine
DX: J44.1 Chronic obstructive pulmonary disease with (acute) exacerbation (principal); J18.9 Pneumonia, unspecified organism; I50.20 Unspecified systolic (congestive) heart failure; L97.929 Non-pressure chronic ulcer of unspecified part of left lower leg with unspecified severity; N39.0 Urinary tract infection, site not specified; E11.40 Type 2 diabetes mellitus with diabetic neuropathy, unspecified; B35.1 Tinea unguium; E11.51 Type 2 diabetes mellitus with diabetic peripheral angiopathy without gangrene; E78.5 Hyperlipidemia, unspecified; F09 Unspecified mental disorder due to known physiological condition; F39 Unspecified mood [affective] disorder; G54.6 Phantom limb syndrome with pain; G89.4 Chronic pain syndrome; I11.0 Hypertensive heart disease with heart failure; I25.10 Atherosclerotic heart disease of native coronary artery without angina pectoris; J44.0 Chronic obstructive pulmonary disease with (acute) lower respiratory infection; L60.3 Nail dystrophy; Z22.322 Carrier or suspected carrier of Methicillin resistant Staphylococcus aureus; Z86.73 Personal history of transient ischemic attack (TIA), and cerebral infarction without residual deficits; Z87.891 Personal history of nicotine dependence; Z89.511 Acquired absence of right leg below knee
CPT/HCPCS: 36415; 80048; 80053; 80061; 82306; 82607; 82728; 82746; 82962; 83540; 83550; 83735; 84100; 84134; 84443; 85025; 92610; 93970; 94640; 97110; 97150; 97162; 97166; 97530; 97535; 97542; J0696; J1200; J1650; J1815; J2405; J2920; J7060; J7512

== ENCOUNTER 2019-09-11 14:42 | Inpatient (IN) | payer MEDICARE, MEDICAID ==
[~2019-09-11] VITALS: Ht 166.4 cm; Wt 68.0 kg
[2019-09-11] MEDS ORDERED: SODIUM CHLORIDE 0.9% 1,000 ML IV ONE (15:25)
[2019-09-11 16:00] LABS: CHLORIDE 101 mEq/L (98-107)
[2019-09-11 16:05] LABS: ETHANOL BLOOD < 10 mg/dL
[2019-09-11 16:08] LABS: PARTIAL THROMBOPLASTIN TIME 24.4 sec (23.4-31.0)
[2019-09-11 16:10] LABS: HEMATOCRIT. 40.6 % (36.0-48.0); HEMOGLOBIN. 13.4 g/dL (12.0-16.0); MEAN CORPUSCULAR HEMOGLOBIN 28.5 pg (28.0-32.0); MEAN CORPUSCULAR VOLUME 86.4 fL (81.0-99.0); MEAN PLATELET VOLUME 8.7 fl (7.4-10.4); PLATELET 167 x1000/uL (130-400); RED CELL DISTRIBUTION WIDTH 16.9 % (11.6-14.6)
[2019-09-11 17:57] LABS: PLATELET ESTIMATE NORMAL
[2019-09-11 21:45] VITALS: BP 160/86
[2019-09-11] MEDS ORDERED: CLONIDINE 0.1MG TABLET PO PRN (23:15)
[2019-09-11] MEDS ORDERED: DEXTROSE 50% WATER 50ML SYRINGE IV PRN (23:15)
[2019-09-11] MEDS ORDERED: IPRATROPIUM/ALBUTEROL 0.5-3(2.5)MG/3ML NEB HHN PRN (23:15)
[2019-09-11] MEDS ORDERED: ONDANSETRON HCL 4MG/2ML INJ IV PRN (23:15)
[2019-09-11] MEDS ORDERED: ACETAMINOPHEN 325MG TABLET PO PRN (23:15)
[2019-09-12] VITALS: BP 145/80
[2019-09-12] MEDS: HYDROCODONE/ACETAMINOPHEN 5/325MG TABLET PO PRN (02:10)
[2019-09-12 04:00] VITALS: BP 129/59
[2019-09-12 05:42] LABS: BASOPHILS % 0.4 % (0.0-2.0); EOSINOPHILS % 0.2 % (0.0-5.0); LYMPHOCYTES % 8.3 % (20.0-50.0); MEAN CORPUSCULAR HEMOGLOBIN 28.2 pg (28.0-32.0); MEAN CORPUSCULAR VOLUME 86.5 fL (81.0-99.0); MEAN PLATELET VOLUME 8.1 fl (7.4-10.4); MONOCYTES % 8.9 % (2.0-8.0); NEUTROPHILS % 82.2 % (40.0-76.0); PLATELET 136 x1000/uL (130-400); RED BLOOD CELL COUNT 4.27 mill/uL (4.2-5.4); RED CELL DISTRIBUTION WIDTH 17.1 % (11.6-14.6)
[2019-09-12 06:15] LABS: CHLORIDE 104 mEq/L (98-107)
[2019-09-12] MEDS: BLOOD SUGAR DIAGNOSTIC STRIP TEST SCH ×4 (07:29→21:23)
[2019-09-12] MEDS: INSULIN LISPRO 100 UNITS/ML SUBCUT SCH ×4 (07:30→21:26)
[2019-09-12 08:00] VITALS: BP 166/83
[2019-09-12] MEDS: METOPROLOL TARTRATE 50MG TABLET PO SCH ×2 (09:18→21:23)
[2019-09-12] MEDS: CLOPIDOGREL 75MG TABLET PO SCH (09:18)
[2019-09-12] MEDS: ASPIRIN 81MG EC TABLET PO SCH (09:18)
[2019-09-12] MEDS: ENOXAPARIN 40MG/0.4ML SYR SUBCUT SCH (09:18)
[2019-09-12] MEDS: AMLODIPINE 5MG TABLET PO SCH (10:54)
[2019-09-12 12:00] VITALS: BP 150/84
[2019-09-12 16:00] VITALS: BP 139/62
[2019-09-12 20:00] VITALS: BP 156/73
[2019-09-12] MEDS: ATORVASTATIN CALCIUM 20MG TABLET PO SCH (21:23)
[2019-09-12] MEDS ORDERED: POTASSIUM CHLORIDE 20MEQ TABLET SR PO SCH (23:45)
[2019-09-13] VITALS: BP 121/52
[2019-09-13 04:00] VITALS: BP 158/86
[2019-09-13 07:05] LABS: BASOPHILS % 0.4 % (0.0-2.0); EOSINOPHILS % 0.5 % (0.0-5.0); HEMATOCRIT. 37.6 % (36.0-48.0); HEMOGLOBIN. 12.3 g/dL (12.0-16.0); LYMPHOCYTES % 8.5 % (20.0-50.0); MEAN CORPUSCULAR HEMOGLOBIN 28.3 pg (28.0-32.0); MEAN CORPUSCULAR VOLUME 86.5 fL (81.0-99.0); MEAN PLATELET VOLUME 8.1 fl (7.4-10.4); MONOCYTES % 6.6 % (2.0-8.0); PLATELET 135 x1000/uL (130-400); RED BLOOD CELL COUNT 4.34 mill/uL (4.2-5.4); RED CELL DISTRIBUTION WIDTH 17.1 % (11.6-14.6)
[2019-09-13 07:37] LABS: CHLORIDE 105 mEq/L (98-107)
[2019-09-13] MEDS: BLOOD SUGAR DIAGNOSTIC STRIP TEST SCH ×4 (07:40→20:52)
[2019-09-13 08:00] VITALS: BP 148/61
[2019-09-13] MEDS: INSULIN LISPRO 100 UNITS/ML SUBCUT SCH ×4 (08:10→20:59)
[2019-09-13] MEDS: ENOXAPARIN 40MG/0.4ML SYR SUBCUT SCH (09:01)
[2019-09-13] MEDS: ASPIRIN 81MG EC TABLET PO SCH (09:01)
[2019-09-13] MEDS: METOPROLOL TARTRATE 50MG TABLET PO SCH ×2 (09:01→20:56)
[2019-09-13] MEDS: CLOPIDOGREL 75MG TABLET PO SCH (09:01)
[2019-09-13] MEDS: AMLODIPINE 5MG TABLET PO SCH (09:02)
[2019-09-13 12:00] VITALS: BP 135/76
[2019-09-13 16:00] VITALS: BP 140/70
[2019-09-13 20:00] VITALS: BP_SYST 154; BP_SYST 158; BP_DIAS 81; BP_DIAS 83
[2019-09-13] MEDS: HYDROCODONE/ACETAMINOPHEN 5/325MG TABLET PO PRN (20:55)
[2019-09-13] MEDS: ATORVASTATIN CALCIUM 20MG TABLET PO SCH (20:56)
[2019-09-14] VITALS: BP 131/68
[2019-09-14 04:00] VITALS: BP 150/83
[2019-09-14] MEDS: BLOOD SUGAR DIAGNOSTIC STRIP TEST SCH ×2 (07:40→12:40)
[2019-09-14 08:00] VITALS: BP 141/85
[2019-09-14] MEDS: INSULIN LISPRO 100 UNITS/ML SUBCUT SCH ×2 (08:10→13:10)
[2019-09-14] MEDS: ASPIRIN 81MG EC TABLET PO SCH (08:52)
[2019-09-14] MEDS: CLOPIDOGREL 75MG TABLET PO SCH (08:52)
[2019-09-14] MEDS: METOPROLOL TARTRATE 50MG TABLET PO SCH (08:52)
[2019-09-14] MEDS: ENOXAPARIN 40MG/0.4ML SYR SUBCUT SCH (08:53)
[2019-09-14] MEDS: AMLODIPINE 5MG TABLET PO SCH (08:53)
[2019-09-14 12:00] VITALS: BP 158/73
== END 2019-09-14 14:00 | disposition home or self-care (01) | DRG 312 ==
LOC: ER 14:52 → 7WST 18:37 → EDBEDREQ 18:41 → ENRESERV 20:40
PROVIDERS: ADMIT Internal Medicine; ATTEND Internal Medicine
DX: R55 Syncope and collapse (principal); I42.9 Cardiomyopathy, unspecified; N39.0 Urinary tract infection, site not specified; L97.929 Non-pressure chronic ulcer of unspecified part of left lower leg with unspecified severity; I13.0 Hypertensive heart and chronic kidney disease with heart failure and stage 1 through stage 4 chronic kidney disease, or unspecified chronic kidney disease; E46 Unspecified protein-calorie malnutrition; I50.20 Unspecified systolic (congestive) heart failure; E11.22 Type 2 diabetes mellitus with diabetic chronic kidney disease; E87.6 Hypokalemia; E78.5 Hyperlipidemia, unspecified; E55.9 Vitamin D deficiency, unspecified; G54.6 Phantom limb syndrome with pain; E11.42 Type 2 diabetes mellitus with diabetic polyneuropathy; G89.4 Chronic pain syndrome; J44.9 Chronic obstructive pulmonary disease, unspecified; E11.51 Type 2 diabetes mellitus with diabetic peripheral angiopathy without gangrene; E78.00 Pure hypercholesterolemia, unspecified; N18.9 Chronic kidney disease, unspecified; I27.20 Pulmonary hypertension, unspecified; I25.10 Atherosclerotic heart disease of native coronary artery without angina pectoris; I25.2 Old myocardial infarction; Z86.73 Personal history of transient ischemic attack (TIA), and cerebral infarction without residual deficits; Z89.511 Acquired absence of right leg below knee; Z88.5 Allergy status to narcotic agent; Z79.82 Long term (current) use of aspirin; Z79.899 Other long term (current) drug therapy; Z87.891 Personal history of nicotine dependence; Z87.01 Personal history of pneumonia (recurrent); Z68.24 Body mass index [BMI] 24.0-24.9, adult
CPT/HCPCS: 36415; 71045; 80048; 80053; 80320; 82962; 83036; 83605; 83735; 83880; 84484; 85025; 93005; 93880; 96372; 97162; 99285; J1650; J1815; J7030; G0480

== ENCOUNTER 2020-02-12 18:22 | Inpatient (IN) | payer MEDICARE, MEDICAID ==
[~2020-02-12] VITALS: Ht 162.6 cm; Wt 85.3 kg
[2020-02-12] MEDS ORDERED: MORPHINE SULFATE 4 MG/ML CPJ (NOT FOR IM USE) IV STA (19:42)
[2020-02-12] MEDS ORDERED: ONDANSETRON HCL 4MG/2ML INJ IV STA (19:42)
[2020-02-12] MEDS ORDERED: SODIUM CHLORIDE 0.9% 1,000 ML IV ONE (19:44)
[2020-02-12 20:31] LABS: BASOPHILS % 1.1 % (0.0-2.0); EOSINOPHILS % 1.3 % (0.0-5.0); HEMATOCRIT. 38.1 % (36.0-48.0); HEMOGLOBIN. 11.7 g/dL (12.0-16.0); LYMPHOCYTES % 21.3 % (20.0-50.0); MEAN CORPUSCULAR HEMOGLOBIN 25.6 pg (28.0-32.0); MEAN CORPUSCULAR VOLUME 83.2 fL (81.0-99.0); MEAN PLATELET VOLUME 8.4 fl (7.4-10.4); MONOCYTES % 8.2 % (2.0-8.0); NEUTROPHILS % 68.1 % (40.0-76.0); PLATELET 175 x1000/uL (130-400); RED BLOOD CELL COUNT 4.57 mill/uL (4.2-5.4); RED CELL DISTRIBUTION WIDTH 19.9 % (11.6-14.6)
[2020-02-12 20:37] LABS: CHLORIDE 109 mEq/L (98-107)
[2020-02-12 20:41] LABS: INR 1.1; PROTHROMBIN TIME 11.1 sec (9.6-11.0)
[2020-02-12] MEDS ORDERED: IOHEXOL-300 100 ML BOTTLE ONE (23:00)
[2020-02-13] MEDS ORDERED: AZITHROMYCIN 500 MG in DEXT 5% WATER 250 ML IV ONE (00:15)
[2020-02-13] MEDS ORDERED: CEFTRIAXONE 1 G PREMIX 50 ML IV ONE (00:15)
[2020-02-13 02:30] VITALS: BP 123/67
[2020-02-13] MEDS ORDERED: ACETAMINOPHEN 325MG TABLET PO PRN (03:30)
[2020-02-13] MEDS ORDERED: DEXTROSE 50% WATER 50ML SYRINGE IV PRN (03:30)
[2020-02-13] MEDS: BLOOD SUGAR DIAGNOSTIC STRIP TEST SCH ×4 (07:25→20:17)
[2020-02-13 08:00] VITALS: BP 128/73
[2020-02-13] MEDS: INSULIN LISPRO 100 UNITS/ML SUBCUT SCH ×4 (08:10→20:27)
[2020-02-13] MEDS: ENOXAPARIN 40MG/0.4ML SYR SUBCUT SCH (08:37)
[2020-02-13 11:18] LABS: HEMATOCRIT 35.1 % (36.0-48.0); HEMOGLOBIN 10.7 g/dL (12.0-16.0); MEAN CORPUSCULAR HEMOGLOBIN 25.6 pg (28.0-32.0); MEAN CORPUSCULAR VOLUME 83.7 fL (81.0-99.0); PLATELET 154 x1000/uL (130-400); RED CELL DISTRIBUTION WIDTH 19.1 % (11.6-14.6)
[2020-02-13 12:00] VITALS: BP 156/83
[2020-02-13] MEDS: ASPIRIN 81MG EC TABLET PO SCH (14:38)
[2020-02-13] MEDS: METOPROLOL TARTRATE 50MG TABLET PO SCH ×2 (14:38→20:26)
[2020-02-13] MEDS: ATORVASTATIN CALCIUM 20MG TABLET PO SCH (14:38)
[2020-02-13] MEDS: CLOPIDOGREL 75MG TABLET PO SCH (14:39)
[2020-02-13 16:00] VITALS: BP 99/66
[2020-02-13] MEDS: FUROSEMIDE 40MG/4ML VIAL IVP SCH (17:41)
[2020-02-13 20:00] VITALS: BP 161/87
[2020-02-13] MEDS: ZOLPIDEM TARTRATE 5MG TABLET PO PRN (20:16)
[2020-02-13] MEDS: HYDROCODONE/ACETAMINOPHEN 5/325MG TABLET PO PRN (20:16)
[2020-02-13] MEDS: CEFTRIAXONE 1,000 MG in DEXTROSE 5% WATER 50 ML IV SCH (20:26)
[2020-02-13] MEDS: LACTULOSE 20G/30ML UDC PO SCH (21:17)
[2020-02-14] VITALS (7 sets, daily range): BP systolic 166–180; BP diastolic 88–109
[2020-02-14] MEDS ORDERED: CEFTRIAXONE 1 G PREMIX 50 ML IV SCH
[2020-02-14] MEDS: AZITHROMYCIN 500 MG in DEXT 5% WATER 250 ML IV SCH (01:12)
[2020-02-14] MEDS: HYDROCODONE/ACETAMINOPHEN 5/325MG TABLET PO PRN (03:50)
[2020-02-14] MEDS: LACTULOSE 20G/30ML UDC PO SCH ×3 (05:58→21:11)
[2020-02-14] MEDS: MORPHINE SULFATE 2 MG/ML CPJ (NOT FOR IM USE) IV PRN ×3 (05:58→21:10)
[2020-02-14] MEDS: CLONIDINE 0.1MG TABLET PO PRN ×2 (05:58→10:40)
[2020-02-14 06:25] LABS: EOSINOPHILS % 1.3 % (0.0-5.0); HEMOGLOBIN. 11.4 g/dL (12.0-16.0); LYMPHOCYTES % 26.2 % (20.0-50.0); MEAN CORPUSCULAR HEMOGLOBIN 25.4 pg (28.0-32.0); MEAN CORPUSCULAR VOLUME 82.4 fL (81.0-99.0); MEAN PLATELET VOLUME 8.2 fl (7.4-10.4); MONOCYTES % 11.3 % (2.0-8.0); NEUTROPHILS % 60.2 % (40.0-76.0); PLATELET 175 x1000/uL (130-400); RED BLOOD CELL COUNT 4.49 mill/uL (4.2-5.4); RED CELL DISTRIBUTION WIDTH 19.5 % (11.6-14.6)
[2020-02-14] MEDS: INSULIN LISPRO 100 UNITS/ML SUBCUT SCH ×4 (08:10→21:00)
[2020-02-14] MEDS: BLOOD SUGAR DIAGNOSTIC STRIP TEST SCH ×4 (08:38→21:09)
[2020-02-14] MEDS: ENOXAPARIN 40MG/0.4ML SYR SUBCUT SCH (08:39)
[2020-02-14] MEDS: FUROSEMIDE 40MG/4ML VIAL IVP SCH (08:39)
[2020-02-14] MEDS: ATORVASTATIN CALCIUM 20MG TABLET PO SCH (08:40)
[2020-02-14] MEDS: CLOPIDOGREL 75MG TABLET PO SCH (08:40)
[2020-02-14] MEDS: ASPIRIN 81MG EC TABLET PO SCH (08:40)
[2020-02-14] MEDS: METOPROLOL TARTRATE 50MG TABLET PO SCH ×2 (08:40→21:10)
[2020-02-14] MEDS ORDERED: AMLODIPINE 5MG TABLET PO SCH (09:00)
[2020-02-14] MEDS ORDERED: CLONIDINE 0.2MG TABLET PO PRN (16:30)
[2020-02-14] MEDS: ZOLPIDEM TARTRATE 5MG TABLET PO PRN (21:10)
[2020-02-14] MEDS: CEFTRIAXONE 1,000 MG in DEXTROSE 5% WATER 50 ML IV SCH (23:04)
[2020-02-15] VITALS: BP 158/84
[2020-02-15] MEDS: AZITHROMYCIN 500 MG in DEXT 5% WATER 250 ML IV SCH (01:43)
[2020-02-15 04:00] VITALS: BP 137/86
[2020-02-15] MEDS: LACTULOSE 20G/30ML UDC PO SCH ×3 (04:45→21:06)
[2020-02-15] MEDS: BLOOD SUGAR DIAGNOSTIC STRIP TEST SCH ×4 (06:58→21:06)
[2020-02-15] MEDS: INSULIN LISPRO 100 UNITS/ML SUBCUT SCH ×4 (06:58→21:06)
[2020-02-15 09:06] VITALS: BP 165/98
[2020-02-15] MEDS: ATORVASTATIN CALCIUM 20MG TABLET PO SCH (09:37)
[2020-02-15] MEDS: FUROSEMIDE 40MG/4ML VIAL IVP SCH (09:37)
[2020-02-15] MEDS: CLOPIDOGREL 75MG TABLET PO SCH (09:38)
[2020-02-15] MEDS: METOPROLOL TARTRATE 50MG TABLET PO SCH ×2 (09:38→20:18)
[2020-02-15] MEDS: AMLODIPINE 10MG TABLET PO SCH (09:38)
[2020-02-15] MEDS: ASPIRIN 81MG EC TABLET PO SCH (09:39)
[2020-02-15] MEDS: ENOXAPARIN 40MG/0.4ML SYR SUBCUT SCH (09:39)
[2020-02-15] MEDS: MORPHINE SULFATE 2 MG/ML CPJ (NOT FOR IM USE) IV PRN ×2 (09:40→20:19)
[2020-02-15 12:06] VITALS: BP 136/75
[2020-02-15 16:15] VITALS: BP 121/73
[2020-02-15 20:00] VITALS: BP 151/56
[2020-02-15] MEDS: ZOLPIDEM TARTRATE 5MG TABLET PO PRN (20:18)
[2020-02-15] MEDS: CEFTRIAXONE 1,000 MG in DEXTROSE 5% WATER 50 ML IV SCH (20:18)
[2020-02-15] MEDS: HYDROCODONE/ACETAMINOPHEN 5/325MG TABLET PO PRN (21:56)
[2020-02-16] VITALS: BP 167/82
[2020-02-16] MEDS: AZITHROMYCIN 500 MG in DEXT 5% WATER 250 ML IV SCH (01:45)
[2020-02-16] MEDS: MORPHINE SULFATE 2 MG/ML CPJ (NOT FOR IM USE) IV PRN (02:38)
[2020-02-16 04:16] VITALS: BP 101/56
[2020-02-16] MEDS: LACTULOSE 20G/30ML UDC PO SCH ×3 (05:00→14:00)
[2020-02-16] MEDS: HYDROCODONE/ACETAMINOPHEN 5/325MG TABLET PO PRN (05:44)
[2020-02-16] MEDS: BLOOD SUGAR DIAGNOSTIC STRIP TEST SCH ×3 (06:27→17:23)
[2020-02-16 08:00] VITALS: BP 170/87
[2020-02-16] MEDS: ATORVASTATIN CALCIUM 20MG TABLET PO SCH (08:52)
[2020-02-16] MEDS: AMLODIPINE 10MG TABLET PO SCH (08:52)
[2020-02-16] MEDS: ASPIRIN 81MG EC TABLET PO SCH (08:52)
[2020-02-16] MEDS: FUROSEMIDE 40MG/4ML VIAL IVP SCH (08:52)
[2020-02-16] MEDS: CLOPIDOGREL 75MG TABLET PO SCH (08:52)
[2020-02-16] MEDS: METOPROLOL TARTRATE 50MG TABLET PO SCH (08:53)
[2020-02-16] MEDS: ENOXAPARIN 40MG/0.4ML SYR SUBCUT SCH (08:53)
[2020-02-16] MEDS: INSULIN LISPRO 100 UNITS/ML SUBCUT SCH ×3 (08:59→17:23)
[2020-02-16 12:00] VITALS: BP 131/56
[2020-02-16 15:30] VITALS: BP 131/56
[2020-02-16 16:00] VITALS: BP 130/76
== END 2020-02-16 17:55 | disposition home health service (06) | DRG 391 ==
LOC: ER 18:22 → 7WST 02-13 00:28 → EDBEDREQTM 02-13 00:32 → EDBEDREQ 02-13 00:32 → ENRESERV 02-13 01:41 → 6WST 02-14 13:58
PROVIDERS: ADMIT Internal Medicine; ATTEND Internal Medicine
DX: K59.04 Chronic idiopathic constipation (principal); J18.9 Pneumonia, unspecified organism; J44.0 Chronic obstructive pulmonary disease with (acute) lower respiratory infection; E46 Unspecified protein-calorie malnutrition; I13.0 Hypertensive heart and chronic kidney disease with heart failure and stage 1 through stage 4 chronic kidney disease, or unspecified chronic kidney disease; I50.22 Chronic systolic (congestive) heart failure; I42.9 Cardiomyopathy, unspecified; D64.9 Anemia, unspecified; E11.22 Type 2 diabetes mellitus with diabetic chronic kidney disease; E11.42 Type 2 diabetes mellitus with diabetic polyneuropathy; E11.51 Type 2 diabetes mellitus with diabetic peripheral angiopathy without gangrene; E78.5 Hyperlipidemia, unspecified; G54.6 Phantom limb syndrome with pain; I25.10 Atherosclerotic heart disease of native coronary artery without angina pectoris; G89.4 Chronic pain syndrome; N18.9 Chronic kidney disease, unspecified; N28.1 Cyst of kidney, acquired; E66.9 Obesity, unspecified; R26.9 Unspecified abnormalities of gait and mobility; I71.4 Abdominal aortic aneurysm, without rupture; Z20.828 Contact with and (suspected) exposure to other viral communicable diseases; Z79.02 Long term (current) use of antithrombotics/antiplatelets; Z79.82 Long term (current) use of aspirin; Z82.49 Family history of ischemic heart disease and other diseases of the circulatory system; Z83.3 Family history of diabetes mellitus; Z86.73 Personal history of transient ischemic attack (TIA), and cerebral infarction without residual deficits; Z87.891 Personal history of nicotine dependence; Z89.511 Acquired absence of right leg below knee; Z99.81 Dependence on supplemental oxygen; Z68.32 Body mass index [BMI] 32.0-32.9, adult; Z79.899 Other long term (current) drug therapy; Z03.818 Encounter for observation for suspected exposure to other biological agents ruled out
CPT/HCPCS: 36415; 71045; 74177; 80048; 80053; 82962; 83036; 83605; 83880; 85025; 85027; 92610; 93005; 93971; 97162; 97166; 99291; J0456; J0696; J1650; J1815; J1940; J2270; J2405; J7030; J7060; Q9967; U0003-CS